=== PATIENT | male | born 1955 | race Caucasian/White ===

== ENCOUNTER 2019-07-02 21:37 | Inpatient (IN) | payer OTHER ==
[~2019-07-02] VITALS: Ht 167.6 cm; Wt 70.3 kg
[~2019-07-02 21:37] MED LIST: FLEXERIL PO; GLUCOPHAGE1000 MG PO; LANTUSSOLASTAR SUBQ; LISINOPRIL5 MG PO; NORCO 5-325 TA1 EACH PO; PROVENTIL HFA6.7 G1 INH; ULTRAM 50MG TAB50 MG PO; ZOFRAN ODT4 MG PO; ZPAK PO
[2019-07-02 21:54] VITALS: BP 139/76
[2019-07-02] MEDS ORDERED: CLINDAMYCIN PO (22:04)
[2019-07-02 22:45] LABS: ABSOLUTE NEUTROPHILS 9.6 thou/uL (1.4-8.2); BASOPHILS 0.4 % (0.0-2.0); EOSINOPHILS 0.7 % (0.0-3.0); HEMATOCRIT 30.8 % (42.0-52.0); HEMOGLOBIN 10.2 gm/dL (14.0-18.0); LYMPHOCYTES 12.4 % (24.0-44.0); MCHC 33.1 g/dL (28.0-37.0); MCV 87.6 fL (80.0-100.0); MONOCYTES 5.2 % (1.0-8.0); PLATELET COUNT 328 thou/uL (150-400); POLYS 81.3 % (36.0-66.0); RBC 3.52 mil/uL (4.50-6.00); RDW 13.4 % (10.5-14.5); WBC 11.8 thou/uL (4.0-11.0)
[2019-07-02 22:46] LABS: CALCIUM 8.4 mg/dL (8.5-10.1); CREATININE 0.9 mg/dL (0.7-1.3); POTASSIUM 3.6 mmol/L (3.5-5.1)
[2019-07-02 22:52] LABS: ALBUMIN 1.8 g/dL (3.4-5.0); TOTAL BILIRUBIN 0.3 mg/dL (<0.1-1.0); TOTAL PROTEIN 6.2 g/dL (6.4-8.2)
[2019-07-03 00:08] VITALS: BP 127/57
[2019-07-03 00:36] VITALS: BP 125/53
[2019-07-03 03:31] VITALS: BP 132/80
[2019-07-03 07:11] VITALS: BP 128/71
--- NOTE | 2019-07-03 08:40 | EKG ---
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 : 1955 Requested By: Oscar Armstrong Order Number: [id number] MD: Vidal Bangura Measurements Intervals [place] Rate: 92 P: 90 DE: 171 QRS: 11 QRSD: 96 T: 31 QT: 373 QTc: 462 Interpretive Statements Sinus rhythm Atrial premature complexes Compared to ECG 03/08/2012 08:32:10 Atrial premature complex(es) now present First degree AV block no longer present Electronically Signed On 07-03-2019 8:39:00 CDT by Vidal Bangura [email or web address] <ELECTRONICALLY SIGNED> By: Vidal Bangura MD, [facility] 07/03/19 0839 2256 2256 Vidal Bangura MD, [facility] /EPI
--- NOTE | 2019-07-03 08:53 | EKG ---
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 07/03/19 0851 Vidal Bangura MD, [facility] /EPI
[2019-07-03 12:05] VITALS: BP 155/78
[2019-07-03 19:12] VITALS: BP 124/63
[2019-07-04 02:07] LABS: GLYCOHEMOGLOBIN (HGB A1C) 14.3 % (4.8-5.6)
[2019-07-04 04:27] VITALS: BP 130/72
[2019-07-04 08:33] VITALS: BP 140/80
[2019-07-04 16:49] VITALS: BP 130/74
[2019-07-04 20:10] VITALS: BP 144/81
[2019-07-05 05:27] VITALS: BP 141/85
[2019-07-05 07:07] VITALS: BP 146/84
[2019-07-05 15:13] VITALS: BP 150/81
[2019-07-06 03:16] VITALS: BP 148/76
[2019-07-06 06:12] LABS: CALCIUM 8.6 mg/dL (8.5-10.1); CREATININE 0.6 mg/dL (0.7-1.3)
[2019-07-06 06:39] LABS: POTASSIUM 6.6 mmol/L (3.5-5.1)
[2019-07-06 07:07] VITALS: BP 151/75
[2019-07-06 14:18] VITALS: BP 151/75
[2019-07-06] MEDS ORDERED: LANTUS SUBQ (14:21)
[2019-07-06] MEDS ORDERED: NORCO 5-325 TA1 EAC1 PO (14:21)
[2019-07-06] MEDS ORDERED: KEFLEX500 M2 PO (14:21)
[2019-07-06 15:25] VITALS: BP 151/75
== END 2019-07-06 17:02 | disposition home or self-care (01) | DRG 603 ==
LOC: ER 21:37 → 4S 23:33 → EROBS 23:33 → 4S 07-03 00:17
PROVIDERS: Emergency Medicine; Internal Medicine; Nurse Practitioner Family; ADMIT Internal Medicine
DX: L03.115 Cellulitis of right lower limb (principal); E46 Unspecified protein-calorie malnutrition; I48.91 Unspecified atrial fibrillation; I48.0 Paroxysmal atrial fibrillation; R59.9 Enlarged lymph nodes, unspecified; E11.40 Type 2 diabetes mellitus with diabetic neuropathy, unspecified; B18.2 Chronic viral hepatitis C; Z88.6 Allergy status to analgesic agent; Z68.25 Body mass index [BMI] 25.0-25.9, adult; Z91.19 Patient's noncompliance with other medical treatment and regimen; Z79.899 Other long term (current) drug therapy
CPT/HCPCS: 10195

== ENCOUNTER 2019-09-12 13:51 | Emergency (ER) | payer OTHER ==
[~2019-09-12] VITALS: Ht 167.6 cm; Wt 59.0 kg
[~2019-09-12 13:51] MED LIST changes: +CLINDAMYCIN PO; +KEFLEX500 M2 PO; +LANTUS SUBQ; +NORCO 5-325 TA1 EAC1 PO
[2019-09-12 14:31] LABS: ABSOLUTE NEUTROPHILS 4.3 thou/uL (1.4-8.2); BASOPHILS 0.9 % (0.0-2.0); EOSINOPHILS 1.4 % (0.0-3.0); HEMATOCRIT 42.8 % (42.0-52.0); HEMOGLOBIN 14.9 gm/dL (14.0-18.0); LYMPHOCYTES 21.2 % (24.0-44.0); MCH 30.3 pg (26.0-34.0); MCHC 34.8 g/dL (28.0-37.0); MCV 87.3 fL (80.0-100.0); MONOCYTES 7.2 % (1.0-8.0); PLATELET COUNT 232 thou/uL (150-400); POLYS 69.3 % (36.0-66.0); RBC 4.91 mil/uL (4.50-6.00); RDW 14.5 % (10.5-14.5); WBC 6.2 thou/uL (4.0-11.0)
[2019-09-12 14:44] LABS: ANION GAP 10 mmol/L (7-16); BUN 28 mg/dL (7-18); CHLORIDE 99 mmol/L (98-107); CO2 24 mmol/L (21-32); CREATININE 1.4 mg/dL (0.7-1.3); DIRECT BILIRUBIN < 0.1 mg/dL (<0.1-0.2); POTASSIUM 4.8 mmol/L (3.5-5.1); SGOT 16 U/L (15-37); SGPT 22 U/L (30-65); SODIUM 133 mmol/L (136-145); TOTAL BILIRUBIN 0.6 mg/dL (0.2-1.0); TOTAL PROTEIN 6.9 g/dL (6.4-8.2); TROPONIN-I <0.06 ng/mL (<0.06)
[2019-09-12 14:45] LABS: GLUCOSE 536 mg/dL (74-106)
--- NOTE | 2019-09-12 17:07 | EKG ---
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1955 Requested By: Karen Munoz Order Number: [id number] MD: Vidal Bangura Measurements Intervals [place] Rate: 99 P: 71 OR: 180 QRS: 5 QRSD: 79 T: 67 QT: 349 QTc: 448 Interpretive Statements Sinus tachycardia Atrial premature complexes Anteroseptal infarct, old Compared to ECG 07/03/2019 08:08:34 Atrial premature complex(es) now present Electronically Signed On 09-12-2019 17:06:35 CDT by Vidal Bangura [email or web address] <ELECTRONICALLY SIGNED> By: Vidal Bangura MD, [facility] 09/12/19 1706 1400 1400 Vidal Bangura MD, [facility] /EPI
[2019-09-12 17:33] VITALS: BP 145/86
== END 2019-09-12 17:35 | disposition home or self-care (01) ==
LOC: ER 13:51
PROVIDERS: Emergency Medicine
DX: R06.02 Shortness of breath (principal); E11.65 Type 2 diabetes mellitus with hyperglycemia; R42 Dizziness and giddiness; R07.9 Chest pain, unspecified; R05 Cough; Z91.14 Patient's other noncompliance with medication regimen; Z79.4 Long term (current) use of insulin; Z79.2 Long term (current) use of antibiotics; Z79.899 Other long term (current) drug therapy; Z88.5 Allergy status to narcotic agent; Z87.891 Personal history of nicotine dependence

== ENCOUNTER 2020-10-02 23:26 | Inpatient (IN) | payer OTHER ==
[~2020-10-02] VITALS: Ht 165.1 cm; Wt 60.8 kg
--- NOTE | ~2020-10-02 | HC ---
[facility] [place] [address] CONSULTATION Name: LUDWIG PAN Room #: 248-P ADM IN M.R.#: [id number] Admission: 10/03/20 Attend Phys: Jabier Beal MD Discharge: Date of : 55 Report #: [id number] THIS REPORT FOR: cc: NO FAMILY PHYSICIAN or PCP NO FAMILY PHYSICIAN or PCP Ildefonso Redding MD ~ DATE OF SERVICE: 10/09/2020 HISTORY OF PRESENT ILLNESS: The patient is a 64-year-old white male with a history of non-ST elevation [place], who was treated over at [place], noted to have multivessel disease, apparently left AMA. He is admitted here to [facility] for further management. He underwent a coronary artery bypass grafting x6 on 10/04/2020. He is currently in the intensive care unit recuperating. He has ischemic cardiomyopathy with some congestion and being diuresed. We are seeing him in rehabilitation medicine consultation. PAST MEDICAL HISTORY: Includes hypertension, atrial fibrillation, diabetes mellitus type 2, ischemic cardiomyopathy, hepatitis C. He has had prior histories of leaving AM. He also has bilateral lower extremity peripheral neuropathy. HABITS: Past tobacco use. Ten pack year history. MEDICATIONS: Please see the full medication listing. 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 Daughter is noted to live in a house, work during the day. He is considering options for where to live. 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 REVIEW OF SYSTEMS: Did not offer any current complaints of chest pain, shortness of breath or abdominal discomfort. PHYSICAL EXAMINATION: GENERAL: He is a slender 64-year-old small statured white male in no obvious distress. VITAL SIGNS: Last recorded temperature 98.4, pulse 104, respirations 21, blood pressure 152/87. NEUROLOGIC: The patient is alert. HEENT: Appeared to be benign, male pattern balding. He is a good historian. He has the sternum, which is dressed. EXTREMITIES: Functional range of motion of the upper extremity is limited. Upper extremity examination, no obvious focal weakness. Lower extremities, he has decreased distal sensation with his neuropathy. No focal calf swelling. Tone appeared to be intact. Strength is probably a grade 4- to 3+/5. He has [facility] [address] [place] [address] CONSULTATION Name: LUDWIG PAN Room #: 248-P [facility] IN M.R.#: [id number] Admission: 10/03/20 Attend Phys: Jabier Beal MD Discharge: Date of : 55 Report #: [id number] been min assist; sit to stand and was ambulatory 15 feet min assist handheld. ASSESSMENT: A 64-year-old male with the following problem list: 1. Cardiac debilitation. 2. Severe coronary artery disease status post coronary artery bypass grafting x6. 3. Delirium, which is noted to have resolved. 4. History of posttraumatic stress disorder per psychiatry input. 5. Ischemic cardiomyopathy. 6. Hypertension. 7. Hyperlipidemia. 8. Atrial fibrillation. 9. Postoperative cardiogenic shock. 10. Acute renal insufficiency superimposed on chronic kidney disease. 11. Thrombocytopenia. 12. Postoperative atrial fibrillation. 13. Acute postop metabolic encephalopathy, noted to have resolved. 14. Medical noncompliance. PLAN: Therapies are working with him on improving strength, endurance, independence. We are considering him for an acute [address] [place] [address] inpatient rehabilitation stay and at this point, he will be placed on the [address] [place] [address] rehabilitation list as beds are tight and we will continue to follow along with you. I encouraged him to continue working in therapies to maximize his strength and functional independence. He desires a male therapist if possible and I did put a request in this regard with physical therapy. Thank you for asking us to assist in this patient's care. By: [phone] Ildefonso Redding MD /nt
[2020-10-02 23:29] VITALS: BP 143/86
[2020-10-02 23:46] LABS: ABSOLUTE NEUTROPHILS 9.5 thou/uL (1.4-8.2); BASOPHILS 0.8 % (0.0-2.0); EOSINOPHILS 0.7 % (0.0-3.0); HEMATOCRIT 29.5 % (42.0-52.0); HEMOGLOBIN 9.9 gm/dL (14.0-18.0); LYMPHOCYTES 8.2 % (24.0-44.0); MCH 30.4 pg (26.0-34.0); MCHC 33.6 g/dL (28.0-37.0); MCV 90.3 fL (80.0-100.0); MONOCYTES 6.5 % (1.0-8.0); PLATELET COUNT 200 thou/uL (150-400); POLYS 83.8 % (36.0-66.0); RBC 3.27 mil/uL (4.50-6.00); RDW 13.7 % (10.5-14.5); WBC 11.4 thou/uL (4.0-11.0)
[2020-10-02 23:56] LABS: CALCIUM 8.1 mg/dL (8.5-10.1); CREATININE 1.3 mg/dL (0.7-1.3); POTASSIUM 3.8 mmol/L (3.5-5.1)
[2020-10-03 00:05] LABS: ALBUMIN 2.5 g/dL (3.4-5.0); TOTAL BILIRUBIN 0.3 mg/dL (0.2-1.0); TOTAL PROTEIN 5.6 g/dL (6.4-8.2)
[2020-10-03 00:07] LABS: TROPONIN-I 1.59 ng/mL (<0.06)
[2020-10-03 00:31] LABS: APTT 25.5 Seconds (24.5-32.8); INR 0.98; PROTIME 10.7 Seconds (10.5-12.1)
[2020-10-03 05:40] LABS: CHOLESTEROL 177 mg/dL (<200); HDL CHOLESTEROL 53 mg/dL (>40); LDL CHOLESTEROL 102 mg/dL (<100); TC:HDL 3.3 Ratio (Not establshd); TRIGLYCERIDE 110 mg/dL (<150); VLDL 22 mg/dL (<40)
[2020-10-03 05:50] LABS: SERUM ASSESSMENT Clear
--- NOTE | 2020-10-03 07:12 | NUR ---
TOOK OVER CARE AT THIS TIME
--- NOTE | 2020-10-03 07:52 | NUR ---
CARDIOLOGY AT BEDSIDE
--- NOTE | 2020-10-03 09:43 | EKG ---
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1955 Requested By: Clifford Shi Order Number: [id number] MD: Vidal Bangura Measurements Intervals [place] Rate: 94 P: 54 [place]: 195 QRS: -8 QRSD: 92 T: 93 QT: 305 QTc: 382 Interpretive Statements Sinus rhythm Anteroseptal infarct, possibly recent ST and T wave abnormality Compared to ECG 09/12/2019 14:00:15 ST (T wave) deviation now present Sinus tachycardia no longer present Atrial premature complex(es) no longer present Electronically Signed On 10-03-2020 9:43:19 CDT by Vidal Bangura [email or web address] <ELECTRONICALLY SIGNED> By: Vidal Bangura MD, [facility] 10/03/20 0943 2330 2330 Vidal Bangura MD, [facility] /EPI
--- NOTE | 2020-10-03 11:55 | NUR ---
PT MOVED TO ED ROOM 16 AT THIS TIME. REPORT GIVEN TO FLORENCIA SOTO. PT VSS ON 2L NC. STABLE AT BASELINE
[2020-10-03 12:24] VITALS: BP 123/78
--- NOTE | 2020-10-03 12:25 | NUR ---
HANDOFF TOOL SENT AT THIS TIME
--- NOTE | 2020-10-03 12:40 | NUR ---
REPORT GIVEN TO FLORENCIA HERNANDEZ AT THIS TIME
--- NOTE | 2020-10-03 12:47 | 2DMMODE ---
[facility] [place] [address] 2 D/M-MODE ECHOCARDIOGRAM Name: LUDWIG PAN Room #: 170-8 ADM IN M.R.#: [id number] Admission: 10/03/20 Attend Phys: Jabier Beal MD Discharge: Date of : 55 Report #: [id number] THIS REPORT FOR: cc: NO FAMILY PHYSICIAN or PCP NO FAMILY PHYSICIAN or PCP Vidal Bangura MD [facility] ~ APPROVED REPORT Study performed: 10/03/2020 11:00:25 EXAM: Comprehensive 2D, Doppler, and color-flow Echocardiogram Patient Location: In-Patient Room #: ER-8 Status: routine BSA: 1.64 HR: 78 bpm BP: 126/77 mmHg Rhythm: NSR Other Information Study Quality: Adequate Indications Diabetes Atrial Fibrillation Cardiomyopathy Chest Pain 2D Dimensions IVSd: 13.08 (7-11mm) LVOT Diam: 22.77 (18-24mm) LVDd: 35.15 mm PWd: 12.76 (7-11mm) Ascending Ao: 31.10 (22-36mm) LVDs: 28.20 (25-40mm) Left Atrium: 44.72 (27-40mm) Aortic Root: 27.74 mm LV Single Plane 4CH: 36.42 % LV Single Plane 2CH: 33.46 % Volumes Left Atrial Volume (Systole) Single Plane 4CH: 74.39 mL Aortic Valve AoV Peak Mohamud.: 1.36 m/s [facility] [address] [place] [address] 2 D/M-MODE ECHOCARDIOGRAM Name: LUDWIG PAN Room #: 170-8 ADM IN M.R.#: [id number] Admission: 10/03/20 Attend Phys: Tonny Palmer Discharge: Date of : 55 Report #: [id number] AO Peak Gr.: 7.58 mmHg LVOT Max P.57 mmHg LVOT Max V: 0.63 m/s TEZ Vmax: 1.87 cm2 Mitral Valve E/A Ratio: 1.4 MV Decel. Time: 841.68 ms MV E Max Mohamud.: 0.67 m/s MV A Mohamud.: 0.48 m/s MV PHT: 244.09 ms MVA (PHT): 4.44 cm2 Pulmonary Valve PV Peak Mohamud.: 0.83 m/s PV Peak Gr.: 2.78 mmHg Tricuspid Valve TR Peak Mohamud.: 2.64 m/s RAP Estimate: 10.00 mmHg TR Peak Gr.: 27.87 mmHg RVSP: 37.00 mmHg Left Ventricle The left ventricle is normal size. Mild concentric left ventricular hypertrophy. Left ventricular systolic function is moderately decreased. LVEF is 35-40%. Anterior and septal hypokinesis Right Ventricle The right ventricle is normal size. The right ventricular systolic function is normal. Atria Left atrium is mildly dilated. The right atrium size is normal. Aortic Valve The aortic valve is moderately calcified No aortic regurgitation is present. There is no aortic valvular stenosis. Mitral Valve Moderate mitral annular calcification. Mild leaflet calcification Mild to moderate mitral regurgitation. No evidence of mitral valve stenosis. Tricuspid Valve The tricuspid valve is normal in structure. Mild tricuspid regurgitation. Pulmonary artery pressure 35 mmHg. Pulmonic Valve [facility] [address] [place] [address] 2 D/M-MODE ECHOCARDIOGRAM Name: [facility] Room #: 170-8 ADM IN [facility].#: [id number] Admission: 10/03/20 Attend Phys: Tonny Palmer Discharge: Date of : 55 Report #: [id number] The pulmonary valve is normal in structure. There is no pulmonic valvular regurgitation. Great Vessels The aortic root is normal in size. IVC is dilated and collapses >50% with inspiration. Pericardium There is no pericardial effusion. There is no pleural effusion. <Conclusion> Left ventricular systolic function is moderately decreased. LVEF is 35-40%. Anterior and septal hypokinesis Left atrium is mildly dilated. The aortic valve is moderately calcified. No aortic regurgitation or stenosis Moderate mitral annular calcification. Mild leaflet calcification. Mild to moderate mitral regurgitation. Mild tricuspid regurgitation. Pulmonary artery pressure of 35 mmHg. There is no pericardial effusion. <ELECTRONICALLY SIGNED> By: Vidal Bangura MD, [facility] 10/03/20 1247 1247 124 Vidal Bangura MD, [facility] /INF
[2020-10-03 14:08] VITALS: BP 141/80
--- NOTE | 2020-10-03 15:31 | NUR ---
PT TRANSFER TO CCU AT APPROX 1300. PT AFEBRILE, ADEQUATE UOP, NO BM, APPROPRIATE APPETITE. HEPARIN GTT INFUSING PER [facility] PROTOCAL. NEXT REDRAW IS 1800 TONIGHT. PT TO BE NPO AFTER MIDNIGHT FOR CABG TOMORROW. PT HAS BEEN THOUROUGHLY UPDATED AND EDUCATED ON PT CONDITION AND POC. PT SLOWLY PROGRESSING TOWARDS POC.
[2020-10-03 19:09] VITALS: BP 130/82
[2020-10-04] VITALS (13 sets, daily range): BP systolic 83–130; BP diastolic 55–82
[2020-10-04 00:06] LABS: HAV IgM AB (ANTI-HAV IgM) Negative (Negative); HEPATITIS B SURFACE AG Negative (Negative); HEPATITIS C VIRUS AB >11.0 (0.0-0.9)
--- NOTE | 2020-10-04 04:49 | NUR ---
ASSUMED CARE OF PT AT 1900 PT IS A/O X4, PT REMAINS ON HEPARIN DRIP WITH PROTOCOLS IN PLACE. PT EDUCATED ON PRE-OPEN HEART PROTOCOLS, PT REFUSES TO SHOWER WITH CHLORAHEXADINE SOAP, STATING THAT I ALREADY TOOK A SHOWER THIS AFTERNOON. PT INFORMED ONCE AGAIN OF THE PROTOCOLS REQUIRED PRIOR TO SURGERY, AND PT STATES UNDERSTANDING AND DENIES REQUEST X2. 0400 PT C/O STOMACH PAIN AND REQUEST MEDICATION. PT INFORMED THAT MEDICATION WAS GIVEN, PT STATES UNDERSTANDING STATING THAT I'LL TELL THE DOCTOR IN THE MORNING. PT REFUSES, BILATERAL ARM BP, URINE SAMPLE AND SHOWER. THIS NURSE TALKED TO THE PATIENT ABOUT CONCERNS/REFUSSALS PT AGREED TO BILATERAL BPS, AND CONTINUES TO REFUSE CHLORAHEXADINE SHOWER, STATING I DON'T WANT TO CATCH PNEUMONIA OR A COLD. PT ALSO REFUSED URINE SAMPLE STATING, I JUST PEED IN THE URINAL, GO GET IT. PT INFOMED THAT SAMPLE CANNOT BE COLLECTED FROM THE URINAL. WILL CONTINUE TO WORK TOWARDS PT POC.
[2020-10-04 06:36] LABS: URINE BILIRUBIN NEGATIVE (Negative); URINE BLOOD 1+ (Negative); URINE CLARITY CLEAR; URINE COLOR YELLOW; URINE GLUCOSE-RANDOM* 3+ (Negative); URINE KETONES TRACE (Negative); URINE LEUKOCYTES-REFLEX NEGATIVE (Negative); URINE NITRITE-REFLEX NEGATIVE (Negative); URINE PROTEIN (DIPSTICK) 3+ (Negative); URINE SPECIFIC GRAVITY 1.025 (1.005-1.035); URINE UROBILINOGEN 0.2 E.U./dl (0.2-1.0)
[2020-10-04 08:11] LABS: BACTERIA-REFLEX 1-9 Few /HPF (None Seen); CASTS None Seen /LPF (None Seen); CRYSTALS None Seen /LPF (None Seen); SQUAMOUS None Seen /LPF (0-3); URINE RBC 1-2 Rare /HPF (NONE SEEN); URINE WBC-REFLEX None Seen /HPF (0-5)
[2020-10-04 13:14] LABS: RDW 13.9 % (10.5-14.5)
[2020-10-04 13:15] LABS: MCH 30.6 pg (26.0-34.0); MCHC 33.7 g/dL (28.0-37.0); MCV 90.7 fL (80.0-100.0); RBC 2.1 mil/uL (4.50-6.00); WBC 6.2 thou/uL (4.0-11.0)
[2020-10-04 13:18] LABS: HEMOGLOBIN 6.4 gm/dL (14.0-18.0)
[2020-10-04 13:46] LABS: INR 1.35; PROTIME 14.5 Seconds (10.5-12.1)
[2020-10-04 13:51] LABS: APTT 25.6 Seconds (24.5-32.8)
[2020-10-04 13:55] LABS: POC BE 2 mmol/L (-2.0 to +3.0); POC CA IONIZED 4.1 mg/dL (4.5-5.3); POC GLUCOSE 188 mg/dL (70-99); POC HCO3 28.1 mmol/L (22.0-26.0); POC HEMOGLOBIN 7.5 g/dL (14.0-18.0); POC POTASSIUM 3.8 mmol/L (3.5-5.1); POC SODIUM 137 mmol/L (136-145); POC pCO2 51.9 mmHg (35.0-45.0); POC pH 7.341 (7.360-7.450)
[2020-10-04 13:55] LABS: POC BE 2 mmol/L (-2.0 to +3.0); POC CA IONIZED 4.3 mg/dL (4.5-5.3); POC GLUCOSE 182 mg/dL (70-99); POC HCO3 26.3 mmol/L (22.0-26.0); POC HEMOGLOBIN 7.5 g/dL (14.0-18.0); POC POTASSIUM 3.6 mmol/L (3.5-5.1); POC SODIUM 138 mmol/L (136-145); POC pCO2 39.3 mmHg (35.0-45.0); POC pH 7.433 (7.360-7.450)
[2020-10-04 13:55] LABS: POC BE 1 mmol/L (-2.0 to +3.0); POC CA IONIZED 4.7 mg/dL (4.5-5.3); POC GLUCOSE 235 mg/dL (70-99); POC HCO3 26.7 mmol/L (22.0-26.0); POC HEMOGLOBIN 9.2 g/dL (14.0-18.0); POC POTASSIUM 3.8 mmol/L (3.5-5.1); POC SODIUM 137 mmol/L (136-145); POC pCO2 47.4 mmHg (35.0-45.0); POC pH 7.359 (7.360-7.450)
[2020-10-04 13:55] LABS: POC BE 1 mmol/L (-2.0 to +3.0); POC CA IONIZED 4.9 mg/dL (4.5-5.3); POC GLUCOSE 155 mg/dL (70-99); POC HCO3 25.6 mmol/L (22.0-26.0); POC HEMOGLOBIN 6.8 g/dL (14.0-18.0); POC POTASSIUM 3.8 mmol/L (3.5-5.1); POC SODIUM 139 mmol/L (136-145); POC pCO2 41.9 mmHg (35.0-45.0); POC pH 7.395 (7.360-7.450)
[2020-10-04 13:55] LABS: POC BE 3 mmol/L (-2.0 to +3.0); POC CA IONIZED 4.3 mg/dL (4.5-5.3); POC GLUCOSE 168 mg/dL (70-99); POC HCO3 27.2 mmol/L (22.0-26.0); POC HEMOGLOBIN 6.8 g/dL (14.0-18.0); POC POTASSIUM 4.3 mmol/L (3.5-5.1); POC SODIUM 138 mmol/L (136-145); POC pCO2 37.5 mmHg (35.0-45.0); POC pH 7.468 (7.360-7.450)
[2020-10-04 13:55] LABS: POC BE 3 mmol/L (-2.0 to +3.0); POC CA IONIZED 4.5 mg/dL (4.5-5.3); POC GLUCOSE 161 mg/dL (70-99); POC HCO3 27.9 mmol/L (22.0-26.0); POC HEMOGLOBIN 6.8 g/dL (14.0-18.0); POC POTASSIUM 3.9 mmol/L (3.5-5.1); POC SODIUM 137 mmol/L (136-145); POC pCO2 47.5 mmHg (35.0-45.0); POC pH 7.377 (7.360-7.450)
[2020-10-04 13:55] LABS: POC BE 4 mmol/L (-2.0 to +3.0); POC CA IONIZED 4.7 mg/dL (4.5-5.3); POC GLUCOSE 303 mg/dL (70-99); POC HCO3 27.2 mmol/L (22.0-26.0); POC HEMOGLOBIN 9.9 g/dL (14.0-18.0); POC POTASSIUM 4.4 mmol/L (3.5-5.1); POC SODIUM 136 mmol/L (136-145); POC pCO2 37.2 mmHg (35.0-45.0); POC pH 7.473 (7.360-7.450)
[2020-10-04 13:56] LABS: POC BE -1 mmol/L (-2.0 to +3.0); POC CA IONIZED 5.2 mg/dL (4.5-5.3); POC GLUCOSE 151 mg/dL (70-99); POC HCO3 24.1 mmol/L (22.0-26.0); POC HEMOGLOBIN 8.5 g/dL (14.0-18.0); POC POTASSIUM 3.7 mmol/L (3.5-5.1); POC SODIUM 140 mmol/L (136-145); POC pH 7.367 (7.360-7.450)
[2020-10-04 14:46] LABS: HCO3 19.9 mmol/L (22.0-26.0); sO2 95.6 % (92.0-98.0)
--- NOTE | 2020-10-04 15:00 | NUR ---
pt recieved from surgery sedated and intubated, accby by anes and or nursing personnel. Report recieved and pt placed on the vent by RT. Dr Ramirez and Robert here to see. Pt presently on Precedex for sedation. momitor shows Junctional rhythm. Pt on Dobutamine and Insulin. Hemodynamic's fluctuating Cardene on and off. Heat source on Pt temp 36.5. all MCT and PCT intact draining a small amount of drainage.Simms patent urine yellow. Assessment completed. Abgs and Labs done. Blood sugar 110. will cont to work toward POC.
[2020-10-04 15:07] LABS: HEMATOCRIT 24.6 % (42.0-52.0); MCH 30.9 pg (26.0-34.0); MCHC 34.4 g/dL (28.0-37.0); MCV 89.9 fL (80.0-100.0); RBC 2.74 mil/uL (4.50-6.00); RDW 13.4 % (10.5-14.5); WBC 8.1 thou/uL (4.0-11.0)
[2020-10-04 15:11] LABS: HEMOGLOBIN 8.5 gm/dL (14.0-18.0)
[2020-10-04 15:21] LABS: CALCIUM 8.6 mg/dL (8.5-10.1); CREATININE 1.7 mg/dL (0.7-1.3); MAGNESIUM 2.6 mg/dL (1.8-2.4)
[2020-10-04 15:30] LABS: APTT 25.3 Seconds (24.5-32.8); INR 1.05; PROTIME 11.4 Seconds (10.5-12.1)
[2020-10-04 15:34] LABS: BE(vivo) -4.9 mmol/L (-2 to +3); PCO2 36.5 mmHg (35.0-45.0); PO2 71.2 mmHg (80.0-100.0); pH 7.357 (7.360-7.450); sO2 93.8 % (92.0-98.0)
--- NOTE | 2020-10-04 16:00 | NUR ---
Ekg and ABG's done Dr Ramirez here.
--- NOTE | 2020-10-04 16:00 | NUR ---
No changes to assessment pt remains sedated and hemodynamic's fluctuating medications adjusted as needed.
--- NOTE | 2020-10-04 18:00 | NUR ---
Pt stabizing and drips adjusted as needed. dr Ramirez here to make his rounds . 1899 Report to oncoming RN.
[2020-10-04 22:59] LABS: BE(vivo) -5.2 mmol/L (-2 to +3); HCO3 19.1 mmol/L (22.0-26.0); PCO2 33.1 mmHg (35.0-45.0); PO2 87.5 mmHg (80.0-100.0); sO2 96.6 % (92.0-98.0)
--- NOTE | 2020-10-04 23:18 | NUR ---
CPAP TRIAL STARTED AT 2220 WITH FiO2 50%, PSV 8 PEEP 5; PT TOLERATED VERY WELL, RESP. RATE IN LOW 20'S, SAT 94-96%, Tv 500-564. ABG'S AFTER 30 MIN WITHIN PARAMETERS. PT EXTUBATED AT 2312 AND PLACED ON 12 L HFC.
[2020-10-05] VITALS (24 sets, daily range): BP systolic 76–131; BP diastolic 45–75
[2020-10-05 00:19] LABS: BE(vivo) -4.8 mmol/L (-2 to +3); HCO3 19.6 mmol/L (22.0-26.0); PCO2 34.2 mmHg (35.0-45.0); PO2 111.2 mmHg (80.0-100.0); pH 7.377 (7.360-7.450)
[2020-10-05 01:06] LABS: GLYCOHEMOGLOBIN (HGB A1C) 13.5 % (4.8-5.6)
[2020-10-05 01:06] LABS: GLYCOHEMOGLOBIN (HGB A1C) 13.7 % (4.8-5.6)
[2020-10-05 04:48] LABS: CALCIUM 8.2 mg/dL (8.5-10.1); CREATININE 1.9 mg/dL (0.7-1.3); MAGNESIUM 2.8 mg/dL (1.8-2.4); POTASSIUM 4.7 mmol/L (3.5-5.1)
--- NOTE | 2020-10-05 07:03 | NUR ---
Pt progressing toward goals. Able to titrate off Cardene gtt by 0100, Precedex titrated off by 0500. Oxygen titrated down from 12 L HFC post extubation to 2 L canula this morning. Urine output for shift approximately 350 cc. Hemodynamics stable and within parameters. Pain well controlled with Fentanyl IVP q 3-4 hours prn.
--- NOTE | 2020-10-05 07:39 | NUR ---
Assummed care of this patient from the night nurse. Cholo DON at 0700
--- NOTE | 2020-10-05 10:46 | EKG ---
[place] [address] [facility] 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 : 1955 Requested By: Butch Vega Order Number: [id number] MD: Vidal Bangura Measurements Intervals [place] Rate: 93 P: 16 [place]: 251 QRS: -16 QRSD: 115 T: 79 QT: 352 QTc: 438 Interpretive Statements Sinus rhythm Prolonged CA interval T wave abnormality, consider anterior ischemia Inferior infarct, old Baseline wander in lead(s) III,aVL,aVF,V1,V2,V3,V4,V5,V6 Compared to ECG 10/02/2020 23:30:04 Septal Q waves are no longer present Electronically Signed On 10-05-2020 10:46:13 CDT by Vidal Bangura [email or web address] <ELECTRONICALLY SIGNED> By: Vidal Bangura MD, [facility] 10/05/20 1046 1600 1600 Vidal Bangura MD, [facility] /EPI
--- NOTE | 2020-10-05 10:53 | EKG ---
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1955 Requested By: Butch Vega Order Number: [id number] MD: Vidal Bangura Measurements Intervals [place] Rate: 78 P: 63 [place]: 198 QRS: -21 QRSD: 74 T: 119 QT: 347 QTc: 396 Interpretive Statements Sinus rhythm Abnormal R-wave progression, early transition Inferior infarct, old Borderline ST elevation, anterolateral leads Compared to ECG 10/04/2020 16:00:31 ST (T wave) deviation now present Electronically Signed On 10-05-2020 10:53:26 CDT by Vidal Bangura [email or web address] <ELECTRONICALLY SIGNED> By: Vidal Bangura MD, [facility] 10/05/20 1053 0756 0756 Vidal Bangura MD, [facility] /EPI
[2020-10-05 10:59] LABS: HEMATOCRIT 27.6 % (42.0-52.0); HEMOGLOBIN 9.4 gm/dL (14.0-18.0); MCH 30.9 pg (26.0-34.0); MCHC 33.9 g/dL (28.0-37.0); MCV 90.9 fL (80.0-100.0); RBC 3.03 mil/uL (4.50-6.00); RDW 14.3 % (10.5-14.5); WBC 9.5 thou/uL (4.0-11.0)
--- NOTE | 2020-10-05 11:30 | NUR ---
1040 PATIENT'S MONITOR SHOWING A FIB WITH VENT RESPONSE [address] SOTELO IN THE UNIT AND INFORMED. ORDERS NOTED. INSULIN DRIP OFF FOR BLOOD GLUCOSE OF 80. RT VENANCIO WALKER IS VERY POSITIONAL. PATIENT TAKING O2 OFF. CARDIZEM BOLUS GIVEN AND DRIP STARTED PER ORDER. URINE OUTPUT LOW, DR SOTELO AWARE, IVF RATE INCREASED.
--- NOTE | 2020-10-05 13:46 | NUR ---
PATIENT REMAINS IN AFIB. DENISE IS VERY POSITIONAL AND WILL ONLY READ WHEN ARM IS FLAT ON THE BED. PATIENT HOLDING ICE BAG TO CHEST HE STATES THAT IT MAKES IT FEEL BETTER. CARDIAC INDEX HAS IMPROVED AND NOW READING 1.6 TO 2.3.
--- NOTE | 2020-10-05 15:00 | NUR ---
PATIENT ASSISTED UP TO THE CHAIR AND IS INSISTENT THAT HIS SWAIN CATH IS NOT DRAINING PROPERLY HE HAS A CONSTANT URGE TO URINATE. BLADDER SCAN DONE WITH 147ML NOTED IN THE BLADDER. SWAIN CATH DC'S AT PATIENT'S REQUEST AND HE ATTEMPTED TO VOID, NO RESULTS.
--- NOTE | 2020-10-05 16:30 | NUR ---
PATIENT RETURNED TO BED AFTER BEING UP FOR 1 HOUR. CHEST TUBES DRAINED SEROUS SANG DRAINAGE. C/O NAUSEA. ZOFRAN GIVEN.
--- NOTE | 2020-10-05 18:00 | NUR ---
PATIENT ATTEMPTING TO CLIMB OUT OF BED, PULLING CHEST TUBES APART. DR SOTELO IN THE UNIT, CHEST TUBES, SWAN AND DENISE PULLED PER ORDER. PACER WIRES CAPPED. PRECEDEX RESTARTED. PCXR DONE PER ORDER.
--- NOTE | 2020-10-05 18:45 | NUR ---
PATIENT IS SLOWLY PROGRESSING TOWARDS OUTCOME GOALS, HEART RATE DROPPING INTO THE UPPER 40'S. PRECEDEX AND CARDIZEM TURNED OFF. BP DROPPED WITH MAP AT 60 MMHG. WILL CONTINUE TO MONITOR
--- NOTE | 2020-10-05 20:17 | NUR ---
Assumed pt care at 191. BP 77/53 per left arm cuff; Dr. Ramirez called. Doctor requested BP taken in both arms for comparison as pt had already received fluid boluses during day shift. Right arm BP 117/70. Will continue to measure BP by right arm. Pt alert, confused but cooperative at this time. Monitor currently shows sinus rhythm. Pt converted from a-fib to sinus rhythm at approximately 1900.
--- NOTE | 2020-10-05 20:32 | NUR ---
Dr. Ramirez here to see pt. VS stable, SBP remains >110, MAP > 60, monitor SR. No new orders at this time.
[2020-10-06] VITALS (23 sets, daily range): BP systolic 90–131; BP diastolic 50–90
--- NOTE | 2020-10-06 00:32 | NUR ---
Mediastinal site dressings saturated with sero-sanguinous drainage. Drsgs and gown changed.
[2020-10-06 04:40] LABS: HEMATOCRIT 26.4 % (42.0-52.0); MCH 30.9 pg (26.0-34.0); MCHC 34.1 g/dL (28.0-37.0); MCV 90.5 fL (80.0-100.0); RBC 2.92 mil/uL (4.50-6.00); RDW 13.8 % (10.5-14.5); WBC 8.4 thou/uL (4.0-11.0)
[2020-10-06 04:56] LABS: ALBUMIN 2.3 g/dL (3.4-5.0); CALCIUM 7.7 mg/dL (8.5-10.1); POTASSIUM 4.7 mmol/L (3.5-5.1); TOTAL BILIRUBIN 0.3 mg/dL (0.2-1.0); TOTAL PROTEIN 5.2 g/dL (6.4-8.2)
--- NOTE | 2020-10-06 07:31 | NUR ---
ASSUMMED CARE OF THIS PATIENT FROM THE NIGHT NURSE, KOBE DON AT 0700. PATIENT IS SLEEPING IN THE CHAIR.
--- NOTE | 2020-10-06 08:23 | HC ---
[facility] [place] [address] CONSULTATION Name: LUDWIG PAN Room #: 248-P ADM IN M.R.#: [id number] Admission: 10/03/20 Attend Phys: Jabier Beal MD Discharge: Date of : 55 Report #: [id number] THIS REPORT FOR: cc: NO FAMILY PHYSICIAN or PCP NO FAMILY PHYSICIAN or PCP Mateus Ramirez MD ~ DATE OF SERVICE: 10/03/2020 REASON FOR CONSULTATION: We were asked to see the patient for coronary artery disease. HISTORY OF PRESENT ILLNESS: The patient is a 64-year-old who was admitted to [facility] on 09/27/2020 with uncontrolled diabetes mellitus, cough and shortness of breath. The patient was ultimately transferred to [facility] and had coronary artery catheterization on 09/30/[address] Vasquez. This shows severe 3-vessel coronary disease and a left dominant system. Left ventricular function reduced with an ejection fraction of 40%. Chart notes atrial fibrillation. The patient was told that he needed coronary artery bypass surgery, but he did not like the way he was treated at [place] and signed out against medical advice early this morning and came directly to our Emergency Department. On admission here, the patient was found to have a slightly elevated troponin and elevated NT-proBNP. The patient is COVID negative. Chest x-ray shows some ill-defined densities. We also note that reasonably full preoperative workup was done at [facility] including carotid studies, vein mapping. PAST MEDICAL HISTORY: Significant for diabetes mellitus and hypertension. Chart notes atrial fibrillation. MEDICATIONS: The patient takes insulin at home along with Januvia and lisinopril. ALLERGIES: None known. SOCIAL HISTORY: The patient claims he does not have a permanent residence. Currently, he is living with daughter and son-in-law transiently. Alcohol, denies chronic alcohol use. Tobacco, claims he quit smoking 20 years ago and denies substance abuse. REVIEW OF SYSTEMS: GENERAL: The patient denies fever, chills, weight change. EYES: Denies vision change. [facility] [address] [place] [address] CONSULTATION [facility]: [facility] Room #: 248-P [facility] IN M.R.#: [id number] Admission: 10/03/20 Attend Phys: Jabier Beal MD Discharge: Date of : 55 Report #: [id number] HENT: Denies headache, nasal discharge, hearing problems. CARDIAC: The patient has epigastric pain at rest. Denies palpitations. RESPIRATORY: Has had some cough and shortness of breath recently. No sputum production, no hemoptysis. GASTROINTESTINAL: Epigastric discomfort. There is a history of hepatitis C positivity, but the patient states he took drugs for the prescribed 3 months, but did not get retested. No nausea, vomiting, diarrhea or blood. GENITOURINARY: No urgency, frequency, blood. MUSCULOSKELETAL: No bone or joint pain. NEUROLOGIC: No motor or sensory dysfunction. ENDOCRINE: No goiter, no tremor. VASCULAR: Denies claudication, rest pain. PSYCHIATRIC: No hallucinations. Does admit to anxiety. PHYSICAL EXAMINATION: GENERAL: The patient is lying in bed, trying to sleep, no distress. VITAL SIGNS: Temperature 37.1, heart rate 73, respiratory rate 17, blood pressure 123/78, O2 sat 94% on room air. HEENT: No scleral icterus. No arcus. Oral, missing 2 front teeth upper incisors. NECK: No mass. I hear no bruit. CHEST: Clear to auscultation. The patient has occasional cough, but I do not hear rales or rhonchi. CARDIAC: Regular rhythm, no murmur. ABDOMEN: Soft, no mass. EXTREMITIES: No clubbing, cyanosis or edema. VASCULAR: 2+ dorsalis pedis pulses bilaterally. No obvious saphenous vein problems. SKIN: No rash or infection. NEUROLOGIC: No motor or sensory dysfunction. MUSCULOSKELETAL: No bone or joint asymmetry or deformity. PSYCHIATRIC: Shows insight into problem. Does appear to have some mild anxiety and emotional lability. ASSESSMENT AND PLAN: Cardiac catheterization demonstrates severe 3-vessel coronary disease with reduced ventricular function in the setting of diabetes mellitus. We have recommended coronary artery bypass surgery. Risks and details of this were discussed with the patient. Options and alternatives were reviewed. Risks include, but are not limited to, bleeding, infection, anesthesia risks, heart and lung problems, stroke, and . The patient understands all of this and he wishes to proceed. The patient is currently on IV heparin. We will obtain the rest of our preoperative studies and try to proceed with surgery tomorrow morning if we can. [address] [address] CONSULTATION Name: LUDWIG PAN Room #: 248-P ADM IN M.R.#: [id number] Admission: 10/03/20 Attend Phys: Jabier Beal MD Discharge: Date of : 55 Report #: [id number] Thank you for the consult. <ELECTRONICALLY SIGNED> By: Maetus Ramirez MD 10/06/20 08 1234 2108 Mateus Ramirez MD /nt
--- NOTE | 2020-10-06 08:24 | O ---
[facility] [place] [address] OPERATIVE REPORT Name: LUDWIG PAN Room #: 248-P ADM IN M.R.#: [id number] Admission: 10/03/20 Attend Phys: Jabier Beal MD Discharge: Date of : 55 Report #: [id number] THIS REPORT FOR: cc: NO FAMILY PHYSICIAN or PCP NO FAMILY PHYSICIAN or PCP Mateus Ramirez MD ~ DATE OF SERVICE: 10/04/2020 PREOPERATIVE DIAGNOSES: Coronary artery disease, atrial fibrillation. POSTOPERATIVE DIAGNOSES: Coronary artery disease, atrial fibrillation. OPERATIONS: Coronary artery bypass x6 including left internal mammary artery to left anterior descending artery, saphenous vein to diagonal, marginal 1, and marginal 2, and marginal 3 and saphenous vein to posterior descending artery (branch of left dominant circumflex) and endoscopic harvest of left greater saphenous vein and clipping of left atrial appendage. ANESTHESIA: General. INDICATIONS: The patient is a 64-year-old with 3-vessel coronary disease. The patient signed himself out of [facility] and came to our facility for treatment. The patient is having rest angina. Catheterization demonstrates severe 3-vessel coronary disease with reduced ventricular function. The patient also seems to have atrial fibrillation on of some of the prior EKGs (and some sinus). FINDINGS AND TECHNIQUE: After general anesthesia was established, saphenous vein was harvested using an endoscopic approach and prepared for use as a conduit. Exposure was obtained through median sternotomy. Left internal mammary artery was harvested from chest wall. Pericardial well was made. Cannulation sutures were placed. Heparin was given. Aorta was cannulated. Right atrium was cannulated. Cardioplegia needle was positioned in the aortic root. Retrograde cardioplegic catheter was placed in the coronary sinus. Cardiopulmonary bypass was established. Aorta was cross clamped. Antegrade and retrograde cardioplegia were given. Ice was poured into the pericardial well. The heart was stopped. During electromechanical arrest, the distal anastomoses were performed. An end-to-side anastomosis was made between vein and the posterior descending artery. This was a distal branch of the left dominant circumflex. Cold cardioplegia was given. A separate segment of vein was sewn end-to-side to the third obtuse marginal artery. This was the largest of the three marginals. Cold cardioplegia was given. The same segment of vein was sewn in end-to-side fashion to the second marginal. Cold cardioplegia was given. The same segment of vein was sewn in end-to-side fashion to the first marginal. [facility] [address] [place] [address] OPERATIVE REPORT Name: LUDWIG PAN Room #: 248-P [facility] IN M.R.#: [id number] Admission: 10/03/20 Attend Phys: Jabier Beal MD Discharge: Date of : 55 Report #: [id number] cardioplegia was given. Same segment of vein was sewn in end-to-side fashion to a diagonal artery. Cold cardioplegia was given. Left internal mammary artery was sewn in end-to-side fashion to the left anterior descending artery. Patency of this vessel was checked with the temperature technique. Cold cardioplegia was given. Two Proximal anastomoses were performed. These were complete, warm retrograde cardioplegia was given followed by warm continuous blood to the coronary sinus. When this infusion was complete, the crossclamp was removed. De-airing maneuvers were performed. The anastomoses were inspected and found to be satisfactory. As the patient warmed, nice cardiac activity resumed, chest tubes and pacing wires were placed. A marker was placed around the proximal anastomoses. When the patient was warm, he was weaned from cardiopulmonary bypass. Venous cannula was removed. Protamine was given, the aortic cannula was removed. Flows were measured in the bypass grafts. Hemostasis was satisfactory, chest was irrigated with antibiotic solution and closed in the usual fashion. The patient was taken to the Intensive Care Unit in good condition having tolerated the procedure well. All counts were reported as correct. <ELECTRONICALLY SIGNED> By: Mateus Ramirez MD 10/06/20 0824 0935 1017 Mateus Ramirez MD /nt
--- NOTE | 2020-10-06 09:05 | O ---
[facility] [place] [address] OPERATIVE REPORT Name: LUDWIG PAN Room #: 248-P ADM IN M.R.#: [id number] Admission: 10/03/20 Attend Phys: Jabier Beal MD Discharge: Date of : 55 Report #: [id number] THIS REPORT FOR: cc: NO FAMILY PHYSICIAN or PCP NO FAMILY PHYSICIAN or PCP Mateus Ramirez MD ~ DATE OF SERVICE: 10/04/2020 ADDENDUM PREOPERATIVE DIAGNOSES: Coronary artery disease and atrial fibrillation. POSTOPERATIVE DIAGNOSES: Coronary artery disease and atrial fibrillation. SURGEON: Dr. Mateus Ramirez. PARTS PERSON: NEHAL Richard. ANESTHESIA: General. OPERATION: Coronary artery bypass x6 including left internal mammary artery to left anterior descending artery, saphenous vein to diagonal, marginal 1, marginal 2, and marginal 3 and saphenous vein to posterior descending branch of the right coronary and clipping of the left atrial appendage. INDICATIONS: The patient has a history of coronary artery disease and atrial fibrillation. This is an addendum to my dictated operative report. In that, I failed to describe placement of the left atrial clip. The previous operative report is correct, but failed to mention that after the establishment of cardiopulmonary arrest, the left atrial appendage was measured and then a 45 mm AtriClip was applied under direct vision and when we were satisfied with the placement, the clip was deployed. Cardioplegia had been given prior to placement of the clip and a dose was given after the clip was applied and then the distal anastomoses were performed as dictated. This should correctly describe the placement of the clip in the context of the operation. <ELECTRONICALLY SIGNED> By: Mateus Ramirez MD 10/06/20 0905 0728 0743 Mateus Ramirez MD /nt
--- NOTE | 2020-10-06 10:39 | EKG ---
[place] [address] [place] [address] ELECTROCARDIOGRAM REPORT Name: LUDWIG PAN Room #: 248-P ADM IN M.R.#: [id number] Admission: 10/03/20 Attend Phys: Jabier Beal MD Discharge: Date of : 55 Report #: [id number] [facility] Test Date: 2020-10-06 Test Time: 08:09:46 Pat Name: LUDWIG PAN Department: Room: 248 P Gender: M Crown Buffer: TITA : 1955 Requested By: Vidal Bangura Order Number: [id number] MD: Vidal Bangura Measurements Intervals [place] Rate: 104 P: VA: QRS: -11 QRSD: 80 T: 70 QT: 346 QTc: 455 Interpretive Statements Atrial fibrillation Inferior infarct, old Probable anteroseptal infarct, recent Compared to ECG 10/05/2020 07:56:31 Sinus rhythm no longer present Anterior Q waves are more prominent Electronically Signed On 10-06-2020 10:39:19 CDT by Vidal Bangura [email or web address] <ELECTRONICALLY SIGNED> By: Vidal Bangura MD, [facility] 10/06/20 1039 0809 08 Vidal Bangura MD, [facility] /EPI
--- NOTE | 2020-10-06 18:04 | NUR ---
PATIENT IS PROGRESSING TOWARDS OUTCOME GOALS. UP IN THE CHAIR SEVERAL TIMES TODAY. STERNAL PRECAUTIONS ENCOURAGED. PATIENT REMAINS IMPULSIVE. PRECEDEX CONTINUES AT A LOW DOSE. ABLE TO CALL FRIEND FLAQUITA AND SPEAK TO HIM. PHONE NUMBER WRITTEN ON WHITE BOARD FOR THE PATIENT.
[2020-10-07] VITALS (25 sets, daily range): BP systolic 61–150; BP diastolic 23–94
--- NOTE | 2020-10-07 06:00 | NUR ---
PT HAS BEEN VERY IMPULSIVE YELLING FOR ME TO KEEP AWAY FROM HIM. SAYS HE CANNOT BREATHE. O2 SAT 97 % ON ROOM AIR. HE TAKES THE O2 OFF AND ON HE WANTED TO GO OUT AMA. HIS FRIEND FLAQUITA SAID NO HE WOULD NOT GET HIM BECAUSE HE NEEDS TO STAY IN ICU. REMAINS ON PRECEDEX AT 1 MCG FOR AGITATION. ALL CHEST AND LEG DRESSINGS DRY AND INTACT. SINUS RHYTHM TO AFIB. LUNGS DIMINISHED BILAT. PROGRESSING TOWARD GOALS.
--- NOTE | 2020-10-07 09:55 | NUR ---
PT WOULD NOT RESPOND, OPEN EYES, OR RESPOND TO ANY VERBAL/PHYSICAL ATTEMPTS TO AROUSE PATIENT. PT HAD JUST BEEN TALKING WITH RN AND WAS AWARE THERAPY COMING IN. ATTEMPT IN AM TO EVAL
--- NOTE | 2020-10-07 10:06 | EKG ---
[place] [address] [address] [address] [place] [address] ELECTROCARDIOGRAM REPORT Name: LUDWIG PAN Room #: 248-P ADM IN M.R.#: [id number] Admission: 10/03/20 Attend Phys: Jabier Beal MD Discharge: Date of : 55 Report #: [id number] [facility] Test Date: 2020-10-07 Test Time: 07:25:10 Pat Name: LUDWIG PAN Department: Room: 248 P Gender: M Supervisory Investigative Specialist: ASH : 1955 Requested By: Vidal Bangura Order Number: [id number] MD: Vidal Bangura Measurements Intervals [place] Rate: 60 P: 46 NE: 210 QRS: -5 QRSD: 86 T: 43 QT: 442 QTc: 442 Interpretive Statements Sinus rhythm Inferior infarct, old Anterior infarct, old Compared to ECG 10/06/2020 08:09:46 Atrial fibrillation no longer present Anterior ST segment elevation is less pronounced Electronically Signed On 10-07-2020 10:06:13 CDT by Vidal Bangura [email or web address] <ELECTRONICALLY SIGNED> By: Vidal Bangura MD, [facility] 10/07/20 1006 4 4 Vidal Bangura MD, [facility] /EPI
--- NOTE | 2020-10-07 16:09 | NUR ---
Chart review. discussed during los and unite rounds. s/p cage. Waiting to leave today. Reported he anxious and hitting. BPCI. Will cont. following as needed for dc needs. Psych consult.
--- NOTE | 2020-10-07 18:39 | NUR ---
precedex off at 1230. pt was given prn norco. pt mentation improved. pt more calm and cooperative. pt sat upto chair and ate his dinner. pt verbalizes understanding of fall precautions and call light.
[2020-10-08] VITALS (9 sets, daily range): BP systolic 122–162; BP diastolic 70–94
[2020-10-08 04:56] LABS: BASOPHILS 0.4 % (0.0-2.0); EOSINOPHILS 1.4 % (0.0-3.0); HEMATOCRIT 29.5 % (42.0-52.0); LYMPHOCYTES 14.1 % (24.0-44.0); MCH 30.9 pg (26.0-34.0); MCHC 33.8 g/dL (28.0-37.0); MCV 91.4 fL (80.0-100.0); MONOCYTES 7.4 % (1.0-8.0); PLATELET COUNT 195 thou/uL (150-400); POLYS 76.7 % (36.0-66.0); RBC 3.23 mil/uL (4.50-6.00); RDW 13.9 % (10.5-14.5); WBC 10.4 thou/uL (4.0-11.0)
[2020-10-08 05:09] LABS: ALBUMIN 2.4 g/dL (3.4-5.0); CALCIUM 8.1 mg/dL (8.5-10.1); CREATININE 1.7 mg/dL (0.7-1.3); POTASSIUM 4.2 mmol/L (3.5-5.1); TOTAL BILIRUBIN 0.3 mg/dL (0.2-1.0); TOTAL PROTEIN 5.7 g/dL (6.4-8.2)
--- NOTE | 2020-10-08 06:00 | NUR ---
A DRAMATIC CHANGE IN PTS PERSONALITY IN THE PAST 24 HOURS. HE WAS COMBATIVE agitated AND CURSING 24 HOURS AGO AND NOW HE IS AWAKE AND ALERT VERY PLEASANT AND COOPERATIVE. A TRUE SHAINA NOW. VSS AFIB TO SINUS RHYTHM. STANDS UP TO VOID. O2 SAT 96% ON ROOM AIR. DRESSINGS DRY AND INTACT. PROGRESSING TOWARD GOALS. WILL CONT TO MONITOR. PT SHOULD TS TO CCU TODAY.
--- NOTE | 2020-10-08 09:00 | NUR ---
Chart review, discussed during am unite rounds. Cm able to visit with him at bedside, he was up in recliner chair. Intro to cm, and discharge planning. Pravin reported he is homeless and had been staying wit his daughter jennifer. He will not be able to return [facility] to [facility]. His mail goes to friends address and cant stay there either. Need to found apartment, i can afford. CM education on calling medicaid to see if can help and place on low income housing. i cant not afford much per pravin. Education on clinic to get help with rx after dc. Patient stated i go to clinic on [address] that is the name of the clinic. I was told i was going to do rehab here, not where i will go. per pravin. Cm education on extended stay motel. Manage own medication, no dme prior to hospital. Education short term rehab, I can stay here per pravin. Will have to see if 5n has eval. Will cont following as needed for dc needs.
--- NOTE | 2020-10-08 11:09 | EKG ---
[place] [address] [facility] [facility] [place] [address] ELECTROCARDIOGRAM REPORT Name: LUDWIG PAN Room #: 248-P ADM IN M.R.#: [id number] Admission: 10/03/20 Attend Phys: Jabier Beal MD Discharge: Date of : 55 Report #: [id number] [facility] Test Date: 2020-10-08 Test Time: 09:44:15 Pat Name: LUDWIG PAN Department: Room: 248 P Gender: M Certified Hyperbaric Technologist: ASH : 1955 Requested By: Butch Vega Order Number: [id number] MD: Tanner Arce Measurements Intervals [place] Rate: 114 P: DC: QRS: -7 QRSD: 85 T: QT: 317 QTc: 437 Interpretive Statements Atrial fibrillation Inferior infarct, old Anterior infarct, old Compared to ECG 10/07/2020 07:25:10 Sinus rhythm no longer present Myocardial infarct finding still present Electronically Signed On 10-08-2020 11:09:07 CDT by Tanner Arce [email or web address] <ELECTRONICALLY SIGNED> By: Tanner Arce MD, [facility] 10/08/20 1109 Tanner Arce MD, [facility] /EPI
--- NOTE | 2020-10-08 15:46 | NUR ---
1500-CHAIR ALARM GOING OFF.PT STANDING TO VOID.GOT SELF BACK TO BED.BED ALARM ON.WARM BLANKET,MENU GIVEN,TRYING TO NAP.--VW
[2020-10-09 04:03] VITALS: BP 144/81
--- NOTE | 2020-10-09 07:33 | NUR ---
ASSUMMED CARE OF THIS PATIENT FROM THE NIGHT NURSE ELISA RN. PATIENT IS IMPULSIVE. DIRECTIONS GIVEN TO CALL FOR ASSISTANCE HE IS UNSTEADY UNLESS HOLDING ON TO FURNITURE.
[2020-10-09 08:00] VITALS: BP 142/86
[2020-10-09 08:04] VITALS: BP 152/87
--- NOTE | 2020-10-09 10:36 | NUR ---
PATIENT IS REFUSING ANY ASSISTANCE OR THERAPY AT THIS TIME. STATES THAT HE WANTS TO SLEEP HE DID NOT GET ANY SLEEP LAST NIGHT. STATES THAT HE WANTS TO SHAVE BUT REFUSES ANY ASSISTANCE FROM THIS NURSE.
[2020-10-09 12:21] VITALS: BP 132/77
[2020-10-09 15:23] VITALS: BP 114/70
--- NOTE | 2020-10-09 17:15 | NUR ---
5N reevaling pt tomorrow as he did not participate with therapy today. CTS and cardiology aware and will talk with him about the importance of rehab. May need to consider SNF ([facility]) if he is not able to tolerate intensive rehab program. [facility] can assess if needed. Will see how he does with therapy tomorrow to determine his dc plan. [facility] and he does not have any benefits beyond inpt tx there if needed. Will follow.
--- NOTE | 2020-10-09 17:19 | NUR ---
FAXED SNF REFERRAL AND NEGATIVE COVID RESULT (10/03/20) TO [facility]. WILL CONFIRM WITH RUBI/ADMISSIONS THAT SHE RECEIVED AND BED AVAILABILITY. [facility] P [phone]; FAX [phone]; M [phone]
--- NOTE | 2020-10-09 18:29 | NUR ---
PATIENT IS PROGRESSING TOWARDS OUTCOME GOALS. AMBULATED AROUND THE UNIT THIS EVENING. C/O ABD BURNING, TUMS GIVEN WITH NO RELIEF. CALLS PLACED TO DR WESLEY WITH NO RESPONSE AT THIS TIME.
[2020-10-09 20:00] VITALS: BP 13/73
[2020-10-10 08:17] VITALS: BP 151/83
--- NOTE | 2020-10-10 10:53 | NUR ---
PT REFUSED THERAPY TODAY. OT PRESENTED 4 OPTIONS AND CONTINUED TO REFUSE. OT PRESENTED GETTING UP IN CHAIR, TOILETING, GROOMING, AND SPONGE BATH
--- NOTE | 2020-10-10 11:50 | NUR ---
[facility] liason to visit with pt about snf stay vs 5N acute rehab. Pt transfering out of ICU to 215 this am. Will follow.
[2020-10-10 11:55] VITALS: BP 128/78
--- NOTE | 2020-10-10 12:24 | NUR ---
PATIENT TRANSFERRED TO RM 215 WITH BELONGINGS
[2020-10-10 14:44] VITALS: BP 151/83
[2020-10-10 15:50] VITALS: BP 135/80
[2020-10-10] MEDS ORDERED: BAYER CHEWABLE81 MG PO (16:22)
[2020-10-10] MEDS ORDERED: HUMALOG100 UNIT/1 SUBQ (16:22)
[2020-10-10] MEDS ORDERED: XARELTO15 MG PO (16:22)
[2020-10-10] MEDS ORDERED: PROTONIX 20 MG20 M1 PO (16:22)
[2020-10-10] MEDS ORDERED: METOPROLOL SUCC50 MG PO (16:22)
[2020-10-10] MEDS ORDERED: DILTIAZEM 24HR180 M1 PO (16:22)
[2020-10-10] MEDS ORDERED: LIPITOR40 MG PO (16:22)
--- NOTE | 2020-10-10 18:27 | NUR ---
REPORT CALLED TO FLORENCIA ESCAMILLA AT [facility]. NO QUESTIONS OR CONCERNS AT TIME OF REPORT. IV REMOVED. TRANSPORT TO ARRIVE AT APPROX 1830
[2020-10-16 15:27] LABS: POC BE 4 mmol/L (-2.0 to +3.0); POC CA IONIZED 4.4 mg/dL (4.5-5.3); POC GLUCOSE 154 mg/dL (70-99); POC HCO3 28.3 mmol/L (22.0-26.0); POC HEMOGLOBIN 6.5 g/dL (14.0-18.0); POC SODIUM 139 mmol/L (136-145); POC pCO2 40.5 mmHg (35.0-45.0); POC pH 7.453 (7.360-7.450)
== END 2020-10-10 18:46 | DRG 235 ==
LOC: ER 23:26 → 2N 10-03 02:28 → EROBS 10-03 02:28 → TBA 10-03 02:28 → 2N 10-03 13:04 → TBA 10-04 12:07 → ICU 10-04 15:12 → 2N 10-10 11:45
PROVIDERS: Emergency Medicine; Internal Medicine; Nurse Practitioner Family; Physician Assistant; Surgery Vascular Surgery; ADMIT Hospitalist; ATTEND Hospitalist
PROC: 30233N1 Transfusion of Nonautologous Red Blood Cells into Peripheral Vein, Percutaneous Approach (ICD-10-PCS; principal; 2020-10-04)
PROC: 5A1221Z Performance of Cardiac Output, Continuous (ICD-10-PCS; principal; 2020-10-04)
PROC: 05HY33Z Insertion of Infusion Device into Upper Vein, Percutaneous Approach (ICD-10-PCS; principal; 2020-10-04)
PROC: 5A0935A Assistance with Respiratory Ventilation, Less than 24 Consecutive Hours, High Flow/Velocity Cannula (ICD-10-PCS; principal; 2020-10-04)
PROC: 021309W Bypass Coronary Artery, Four or More Arteries from Aorta with Autologous Venous Tissue, Open Approach (ICD-10-PCS; principal; 2020-10-04)
PROC: 02100Z9 Bypass Coronary Artery, One Artery from Left Internal Mammary, Open Approach (ICD-10-PCS; principal; 2020-10-04)
PROC: 06BQ4ZZ Excision of Left Saphenous Vein, Percutaneous Endoscopic Approach (ICD-10-PCS; principal; 2020-10-04)
PROC: 02L70CK Occlusion of Left Atrial Appendage with Extraluminal Device, Open Approach (ICD-10-PCS; 2020-10-04)
PROC: 5A0945A Assistance with Respiratory Ventilation, 24-96 Consecutive Hours, High Flow/Velocity Cannula (ICD-10-PCS; 2020-10-06)
DX: I21.4 Non-ST elevation (NSTEMI) myocardial infarction (principal); G93.41 Metabolic encephalopathy; I50.21 Acute systolic (congestive) heart failure; T81.11XA Postprocedural cardiogenic shock, initial encounter; E43 Unspecified severe protein-calorie malnutrition; N17.9 Acute kidney failure, unspecified; I48.20 Chronic atrial fibrillation, unspecified; I13.0 Hypertensive heart and chronic kidney disease with heart failure and stage 1 through stage 4 chronic kidney disease, or unspecified chronic kidney disease; I25.10 Atherosclerotic heart disease of native coronary artery without angina pectoris; I25.5 Ischemic cardiomyopathy; E78.5 Hyperlipidemia, unspecified; E11.42 Type 2 diabetes mellitus with diabetic polyneuropathy; R53.81 Other malaise; R41.0 Disorientation, unspecified; D69.6 Thrombocytopenia, unspecified; I65.23 Occlusion and stenosis of bilateral carotid arteries; D64.9 Anemia, unspecified; N18.2 Chronic kidney disease, stage 2 (mild); E11.22 Type 2 diabetes mellitus with diabetic chronic kidney disease; I48.0 Paroxysmal atrial fibrillation; Z20.822 Contact with and (suspected) exposure to COVID-19; F43.10 Post-traumatic stress disorder, unspecified; Z86.19 Personal history of other infectious and parasitic diseases; Z79.01 Long term (current) use of anticoagulants; Z82.49 Family history of ischemic heart disease and other diseases of the circulatory system; Z88.6 Allergy status to analgesic agent; Z87.891 Personal history of nicotine dependence; Z79.4 Long term (current) use of insulin; Z91.14 Patient's other noncompliance with medication regimen; Z59.0 Homelessness; Z79.82 Long term (current) use of aspirin; Z79.899 Other long term (current) drug therapy
CPT/HCPCS: 10078; 10081; 10203; 47000; 47001; 47002; 47297; 48889; 50011; 50249; 50668; 51301; 52131; 52259; 52287; 53327; 53358; 54118; 56455; 56524; 56525; 56526; 56527; 56528; 56531; 56534; 56668; 56719; 56760; 56898; 57093; 57102; 57116; 57167; 58585; 58901; 62110; 62950; 65003; 65020; 65120; 65135

== ENCOUNTER 2020-10-11 08:10 | Emergency (ER) | payer OTHER ==
[~2020-10-11] VITALS: Ht 165.1 cm; Wt 74.8 kg
--- NOTE | ~2020-10-11 | EMS ---
[facility] [address] [place] [address] EMS Patient Care Report Name: LUDWIG PAN Room #: DEP ABIGAIL Carter#: [id number] Admission: 10/11/20 Attend Phys: Discharge: 10/11/20 Date of : 55 Report #: [id number] THIS REPORT FOR: //name// Report Transmitted: 10/14/2020 12:05 EMS Care Summary [place], [place]/[facility] Incident [id number] @ 10/11/2020 07:46 Incident Location [address] [place] [address] E10 Patient LUDWIG PAN Male, 64 Years 1955 Patient Address [address] [place] [id number] Patient History Hypertension (HTN),Cardiac Condition - Other, Patient Allergies No known allergies, Patient Medications None Reported, Chief Complaint CP Disposition Transported No Lights/[place] Dispatch Reason Sick Person Transported To [facility] Narrative Upon arrival patient was laying on right side in side in assisted living center bed. Patient had a chief complaint of chest pain and stated he was currently having a heart attack. Patient had just received open heart surgery one week prior and left against medical advice the next day According to assisted [facility] [address] [place] [address] EMS Patient Care Report Name: LUDWIG PAN Room #: FAUSTINO Carter#: [id number] Admission: 10/11/20 Attend Phys: Discharge: 10/11/20 Date of : 55 Report #: [id number] staff. Patient was assisted to stretch her and taken to backup ambulance for further medical intervention and even is your vention and evaluation. Patient was then monitored while on route to hospital for any change in condition. Initial Vitals @08:01P: 88,CO: 2,SpO2: 94, @08:01P: 82,R: 18,BP: 116/63,Pain: 0/10,GCS: 15,SpO2: 93,Revised Trauma: 12, @08:00P: 84,R: 18,BP: 124/64,Pain: 0/10,GCS: 15,CO: 1,SpO2: 93,Revised Trauma: 12, Assessments @07:51MENTAL:No Abnormalities,SKIN:No Abnormalities,HEENT:Head/Face: No Abnormalities,Eyes: No Abnormalities,Neck/Airway: No Abnormalities,LUNG SOUNDS:General: No Abnormalities,Left Upper: No Abnormalities,Right Upper: No Abnormalities,Left Lower: No Abnormalities,Right Lower: No Abnormalities,ABDOMEN:General: No Abnormalities,Left Upper: No Abnormalities,Right Upper: No Abnormalities,Left Lower: No Abnormalities,Right Lower: No Abnormalities,PELVIS//GI:No Abnormalities,EXTREMITIES:Capillary Refill: Right Upper: < 2 Sec,Capillary Refill: Left Upper: < 2 Sec,Left Arm: No Abnormalities,Right Arm: No Abnormalities,Left Leg: No Abnormalities,Right Leg: No Abnormalities,PULSE:Radial: 2+ Normal,NEURO:No Abnormalities, Impression Chest Pain / Discomfort Procedures @07:51ALS AssessmentResponse: UnchangedSucceeded@08:0112-Lead ECG@07:55 cc () @07:55Aspirin - - Timeline 07:44,Call Received 07:44,Dispatch Notified 07:46,Dispatched 07:47,En Route 07:50,On Scene 07:51,At Patient 07:51,ALS Assessment,Response: UnchangedSucceeded, 07:55, cc Site: , 07:55,Aspirin - - , 08:00,BP: 124/64 M,PULSE: 84,RR: 18 R,SPO2: 93 Ox,ETCO2: ,BG: ,PAIN: 0,GCS: 15, 08:01,12-Lead ECG, 08:01,BP: / M,PULSE: 88,RR: R,SPO2: 94 Ox,ETCO2: ,BG: ,PAIN: ,GCS: , 08:01,BP: 116/63 M,PULSE: 82,RR: 18 R,SPO2: 93 Ox,ETCO2: ,BG: ,PAIN: 0,GCS: 15, 08:03,Depart Scene 08:05,At Destination 08:15,Call Closed [facility] [address] [place] [address] EMS Patient Care Report Name: TESHAGABRIELOUSMANELUDWIG Room #: DEP ABIGAIL Carter#: [id number] Admission: 10/11/20 Attend Phys: Discharge: 10/11/20 Date of : 55 Report #: [id number] Disclaimer v1.1 Copyright 2020 [employer] This EMS Care Summary contains data elements from the applicable legal record (which may be displayed differently). It is designed to provide pertinent information for the following purposes: continuity of care, clinical quality, and state data reporting. The complete legal record is available to ED staff and administrators of the receiving hospital in [employer]'s Patient Tracker. All data is provided "as is."
[~2020-10-11 08:10] MED LIST changes: +BAYER CHEWABLE81 MG PO; +DILTIAZEM 24HR180 M1 PO; +HUMALOG100 UNIT/1 SUBQ; +LIPITOR40 MG PO; +METOPROLOL SUCC50 MG PO; +PROTONIX 20 MG20 M1 PO; +XARELTO15 MG PO
[2020-10-11 08:38] LABS: ABSOLUTE NEUTROPHILS 6.9 thou/uL (1.4-8.2); BASOPHILS 0.5 % (0.0-2.0); HEMATOCRIT 29.5 % (42.0-52.0); HEMOGLOBIN 10.1 gm/dL (14.0-18.0); LYMPHOCYTES 12.6 % (24.0-44.0); MCH 30.8 pg (26.0-34.0); MCHC 34.1 g/dL (28.0-37.0); MCV 90.1 fL (80.0-100.0); PLATELET COUNT 273 thou/uL (150-400); POLYS 75.9 % (36.0-66.0); RBC 3.27 mil/uL (4.50-6.00); WBC 9.1 thou/uL (4.0-11.0)
[2020-10-11 08:45] LABS: CALCIUM 8.2 mg/dL (8.5-10.1); CREATININE 1.5 mg/dL (0.7-1.3); POTASSIUM 4.7 mmol/L (3.5-5.1)
[2020-10-11 08:54] LABS: ALBUMIN 2.5 g/dL (3.4-5.0); TOTAL BILIRUBIN 0.4 mg/dL (0.2-1.0); TOTAL PROTEIN 5.7 g/dL (6.4-8.2)
[2020-10-11 08:56] LABS: TROPONIN-I 1.02 ng/mL (<0.06)
--- NOTE | 2020-10-11 09:06 | EKG ---
[place] [address] [facility] [place] [address] ELECTROCARDIOGRAM REPORT Name: LUDWIG PAN Room #: REG ABIGAIL Carter#: [id number] Admission: 10/11/20 Attend Phys: Discharge: Date of : 55 Report #: [id number] [facility] Test Date: 2020-10-11 Test Time: 08:11:49 Pat Name: LUDWIG PAN Department: Room: Gender: M Desktop Support Associate: marianela : 1955 Requested By: Karen Munoz Order Number: [id number] MD: Vidal Bangura Measurements Intervals [place] Rate: 90 P: NV: QRS: -11 QRSD: 70 T: QT: 472 QTc: 578 Interpretive Statements Atrial fibrillation Nonspecific T wave abnormality Prolonged QT interval Baseline wander in lead(s) V1 Compared to ECG 10/08/2020 09:44:15 Repolarization abnormality is no longer present Electronically Signed On 10-11-2020 9:06:07 CDT by Vidal Bangura [email or web address] <ELECTRONICALLY SIGNED> By: Vidal Bnagura MD, [facility] 10/11/20905 0 0 Vidal Bangura MD, [facility] /EPI
[2020-10-11 10:00] VITALS: BP 154/100
[2020-10-12] MEDS ORDERED: PROBIOTIC1 EAC1 PO (20:31)
== END 2020-10-11 10:00 ==
LOC: ER 08:10
PROVIDERS: Emergency Medicine
DX: R07.89 Other chest pain (principal); E13.9 Other specified diabetes mellitus without complications; I10 Essential (primary) hypertension; I48.91 Unspecified atrial fibrillation; I42.9 Cardiomyopathy, unspecified; Z79.82 Long term (current) use of aspirin; Z79.899 Other long term (current) drug therapy; Z79.4 Long term (current) use of insulin; Z88.6 Allergy status to analgesic agent; Z87.891 Personal history of nicotine dependence

== ENCOUNTER 2020-10-12 17:18 | Inpatient (IN) | payer OTHER ==
[~2020-10-12] VITALS: Ht 170.2 cm; Wt 69.4 kg
--- NOTE | ~2020-10-12 | EMS ---
[address] [address] EMS Patient Care Report Name: LUDWIG PAN Room #: 248-P ADM IN M.R.#: [id number] Admission: 10/12/20 Attend Phys: Elaine Costello MD Discharge: Date of : 55 Report #: [id number] THIS REPORT FOR: //name// Report Transmitted: 10/14/2020 13:23 EMS Care Summary [place], [place]/[facility] Incident [id number] @ 10/12/2020 16:33 Incident Location [facility] E10 Patient LUDWIG WOODALL Male, 64 Years 1955 Patient Address [address] [place] [address] [address] [place] [address] Patient History Diabetes,Cardiac Condition - Other, Patient Allergies No known allergies, Patient Medications Insulin, Chief Complaint Altered mental status, bradycardia, high bgl Disposition Transported Lights/[place] Dispatch Reason Falls Transported To [facility] Narrative Called for a patient with chest pain. Upon arrival found T15 and nursing staff by the patient's side. The nursing staff explained that they called T15 for a lift assist because the patient was rolling around on the ground and would not [facility] [address] [place] [address] EMS Patient Care Report Name: LUDWIG PAN Room #: 248-P ADM IN .R.#: [id number] Admission: 10/12/20 Attend Phys: Elaine Costello MD Discharge: Date of : 55 Report #: [id number] go back into his bed. T15 informed ems that the patient told them he wanted to go to the er but wouldn't say why so they called for chest pain because of his CABG sorcery. The patient would only moan in pain and told ems to check his BGL because he thinks it is low. He would not answer any other questions. The nurse informed ems that the patient went to the er just yesterday for the same thing and they related it to behavioral problems. EMS noticed a BGL that read Hi. EMS also noticed bandages on his chest which the nurse said is from a recent CABG surgery. EMS started an IV and placed the patient on oxygen. EMS applied the 4 lead, but did not look at it right away because they began to type in the patient's information into the computer. The patient then began to moan less and his breathing began to decrease. EMS noticed on monitor that he was going Bradycardia. Patient continued to have a pulse. EMS began to pace the heart. EMS had a difficult time pacing because the patient was sweaty and the pads/electrodes would not stick well. The patient would also wake up while being paced and try to take the stuff of him, but then go unresponsive when pacing was paused. EMS waited for P36 to get on scene before transporting incase patient went into cardiac arrest and because he was fighting the pacer. Patient was restrained and transported to the er. Pacing continued in the er until the er had their pacer ready. Patient care was given to the er nurse. Initial Vitals @17:13P: 29,R: 18,BP: 111/61,Pain: 0/10,GCS: 15,SpO2: 97,Revised Trauma: 12, @16:50P: 55,R: 18,BP: 90/60,Pain: 0/10,GCS: 15,Glucose: -2,SpO2: 97,Revised Trauma: 12, Assessments @16:50MENTAL:Other,SKIN:Diaphoresis,HEENT:Head/Face: No Abnormalities,Neck/Airway: No Abnormalities,LUNG SOUNDS:General: No Abnormalities,ABDOMEN:General: No Abnormalities,PELVIS//GI:EXTREMITIES:Left Arm: No Abnormalities,Right Arm: No Abnormalities,Left Leg: No Abnormalities,PULSE:NEURO:No Abnormalities,@17:15 Impression Cardiac arrhythmia/dysrhythmia Procedures @16:49ALS AssessmentResponse: UnchangedSucceeded@16:50StretcherResponse: Unchanged@16:57Saline Lock 10cc (20 ga) Site: Hand-LeftResponse: UnchangedSucceeded@16:59Oxygen FlowRate: 15 Device: Non Re-breather Mask (NRB) Response: UnchangedSucceeded@17:003-Lead ECGResponse: UnchangedSucceeded@17:04Response: Improved@17:07Response: Worse@17:07Response: Improved@17:19Response: Unchanged Timeline 16:18,Call Received 16:18,Dispatch Notified [address] [address] EMS Patient Care Report Name: LUDWIG PAN Room #: 248-P ADM IN M.R.#: [id number] Admission: 10/12/20 Attend Phys: Elaine Costello MD Discharge: Date of : 55 Report #: [id number] 16:33,Dispatched 16:33,En Route 16:43,On Scene 16:46,At Patient 16:49,ALS Assessment,Response: UnchangedSucceeded, 16:50,Stretcher,Response: Unchanged 16:50,BP: 90/60 M,PULSE: 55,RR: 18 R,SPO2: 97 Ox,ETCO2: ,BG: -2,PAIN: 0,GCS: 15, 16:57,Saline Lock 10cc 20 ga Site: Hand-Left,Response: UnchangedSucceeded, 16:59,Oxygen FlowRate: 15 Device: Non Re-breather Mask (NRB) Response: UnchangedSucceeded, 17:00,3-Lead ECG,Response: UnchangedSucceeded, 17:04,Response: Improved 17:07,Response: Worse 17:07,Response: Improved 17:13,Depart Scene 17:13,BP: 111/61 M,PULSE: 29,RR: 18 R,SPO2: 97 Ox,ETCO2: ,BG: ,PAIN: 0,GCS: 15, 17:19,Response: Unchanged 17:45,At Destination 17:51,Call Closed Disclaimer v1.1 Copyright 2020 [employer] This EMS Care Summary contains data elements from the applicable legal record (which may be displayed differently). It is designed to provide pertinent information for the following purposes: continuity of care, clinical quality, and state data reporting. The complete legal record is available to ED staff and administrators of the receiving hospital in [employer]'s Patient Tracker. All data is provided "as is."
[2020-10-12 17:49] LABS: ABSOLUTE NEUTROPHILS 8.9 thou/uL (1.4-8.2); BASOPHILS 0.3 % (0.0-2.0); HEMOGLOBIN 9.8 gm/dL (14.0-18.0); LYMPHOCYTES 13.3 % (24.0-44.0); MCH 29.8 pg (26.0-34.0); MCHC 31.8 g/dL (28.0-37.0); MCV 93.8 fL (80.0-100.0); MONOCYTES 6.3 % (1.0-8.0); POLYS 78.1 % (36.0-66.0); WBC 11.4 thou/uL (4.0-11.0)
[2020-10-12 17:52] LABS: PLATELET COUNT 390 thou/uL (150-400)
[2020-10-12 18:02] LABS: APTT 23.2 Seconds (24.5-32.8); INR 1.02; PROTIME 11.1 Seconds (10.5-12.1)
[2020-10-12 18:06] LABS: ALBUMIN 2.3 g/dL (3.4-5.0); CALCIUM 8.3 mg/dL (8.5-10.1); CREATININE 2.1 mg/dL (0.7-1.3); POTASSIUM 5.4 mmol/L (3.5-5.1); TOTAL BILIRUBIN 0.5 mg/dL (0.2-1.0); TOTAL PROTEIN 5.6 g/dL (6.4-8.2)
[2020-10-12 18:14] LABS: TROPONIN-I 0.68 ng/mL (<0.06)
[2020-10-12 19:04] LABS: BE(vivo) -3.8 mmol/L (-2 to +3); HCO3 20.3 mmol/L (22.0-26.0); PCO2 33.7 mmHg (35.0-45.0); PO2 201.3 mmHg (80.0-100.0); pH 7.397 (7.360-7.450); sO2 99.4 % (92.0-98.0)
[2020-10-12] MEDS ORDERED: PROBIOTIC1 EAC1 PO (20:31)
[2020-10-12 20:53] LABS: URINE BILIRUBIN NEGATIVE (Negative); URINE BLOOD TRACE (Negative); URINE CLARITY CLEAR; URINE COLOR YELLOW; URINE GLUCOSE-RANDOM* 3+ (Negative); URINE KETONES NEGATIVE (Negative); URINE LEUKOCYTES-REFLEX NEGATIVE (Negative); URINE NITRITE-REFLEX NEGATIVE (Negative); URINE PROTEIN (DIPSTICK) 2+ (Negative); URINE SPECIFIC GRAVITY 1.015 (1.005-1.035)
[2020-10-12 21:04] LABS: SQUAMOUS 4-10 Moderate /LPF (0-3)
[2020-10-12 21:05] LABS: BACTERIA-REFLEX None Seen /HPF (None Seen); CASTS None Seen /LPF (None Seen); CRYSTALS None Seen /LPF (None Seen); MUCUS 0-3 Light strn/LPF (None Seen); URINE RBC 3-10 Few /HPF (NONE SEEN); URINE WBC-REFLEX 0-5 Rare /HPF (0-5)
[2020-10-12 22:52] VITALS: BP 127/61
[2020-10-12 23:30] VITALS: BP 127/64
[2020-10-12 23:35] VITALS: BP 131/69
[2020-10-12 23:40] VITALS: BP 178/91
--- NOTE | 2020-10-12 23:40 | NUR ---
Pt arrived ICU via stretcher, accompanied with ER staffs and RT to room 248. He is intubated and sedated. He became restless and agitated once lighten up sedation. on Dopamine gtt at this time. quality assurance monitor chassis is showing SR with 1 degree AVB and BBB. Hx obtained from old medical records. Assessment completed. Continue workiong toward of goals.
[2020-10-13] VITALS (85 sets, daily range): BP systolic 91–205; BP diastolic 41–161
--- NOTE | 2020-10-13 00:30 | NUR ---
Start heparin gtt per DVT protocol.
--- NOTE | 2020-10-13 04:30 | NUR ---
Dompamine gtt off . Continue to monitor any changes.
[2020-10-13 06:17] LABS: ALBUMIN 2.2 g/dL (3.4-5.0); CALCIUM 7.9 mg/dL (8.5-10.1); CREATININE 1.7 mg/dL (0.7-1.3); TOTAL BILIRUBIN 0.3 mg/dL (0.2-1.0); TOTAL PROTEIN 5.3 g/dL (6.4-8.2)
[2020-10-13 06:30] LABS: POTASSIUM 3.5 mmol/L (3.5-5.1)
[2020-10-13 07:11] LABS: ABSOLUTE NEUTROPHILS 10.6 thou/uL (1.4-8.2); BASOPHILS 0.3 % (0.0-2.0); EOSINOPHILS 0.3 % (0.0-3.0); HEMATOCRIT 27.3 % (42.0-52.0); LYMPHOCYTES 10.2 % (24.0-44.0); MCH 29.7 pg (26.0-34.0); MCV 89.9 fL (80.0-100.0); MONOCYTES 4.1 % (1.0-8.0); POLYS 85.1 % (36.0-66.0); RBC 3.03 mil/uL (4.50-6.00); RDW 13.7 % (10.5-14.5); WBC 12.4 thou/uL (4.0-11.0)
[2020-10-13 07:14] LABS: PLATELET COUNT 314 thou/uL (150-400)
--- NOTE | 2020-10-13 10:25 | NUR ---
ASSUMED CARE OF PT AT 0700. PT SEDATED AND INTUBATED. BILATERAL SOFT WRIST RESTRAINS IN PLACE. PT ABLE TO MOVE ALL EXTREMETIES. DOPAMINE GTT OFF AND PT MAINTAINING HR IN 70s. INSULIN GTT TITRATED OFF AT 0845 PER PROTOCOL. WILL CONTINUE TO MONITOR BG TREND. ATTEMPTED TO CALL HAYLEY CHAVEZ THIS AM AND WAS UNABLE TO CONTACT HER. WILL CONTINUE TO MONITOR PT.
[2020-10-13 15:22] LABS: BE(vivo) -2.3 mmol/L (-2 to +3); HCO3 20.8 mmol/L (22.0-26.0); PCO2 29.9 mmHg (35.0-45.0); PO2 111.4 mmHg (80.0-100.0); pH 7.461 (7.360-7.450); sO2 98.4 % (92.0-98.0)
--- NOTE | 2020-10-13 19:49 | NUR ---
pt continues to act out threatening staff and calling family/friends offering them money to come and get him from the hospital, pt so far has been unable to get any one to agree to come and get him from the hospital and on assessment he has demonstrated that he does not understand he has medical issues that could kill him if he left now. Dr Fenton called and message left for him to call with directions, security now in pts room with him as he continues to be agressive and resistant to staff attempting to care for him
[2020-10-14] VITALS (29 sets, daily range): BP systolic 104–166; BP diastolic 51–111
[2020-10-14 07:08] LABS: HEMATOCRIT 24.1 % (42.0-52.0); HEMOGLOBIN 8.3 gm/dL (14.0-18.0); MCH 30.6 pg (26.0-34.0); MCHC 34.4 g/dL (28.0-37.0); MCV 88.8 fL (80.0-100.0); RBC 2.71 mil/uL (4.50-6.00); RDW 13.9 % (10.5-14.5); WBC 10.9 thou/uL (4.0-11.0)
[2020-10-14 07:33] LABS: CALCIUM 7.6 mg/dL (8.5-10.1); CREATININE 1.6 mg/dL (0.7-1.3); POTASSIUM 3.8 mmol/L (3.5-5.1)
--- NOTE | 2020-10-14 10:41 | 2DMMODE ---
[facility] [address] [place] [address] 2 D/M-MODE ECHOCARDIOGRAM Name: LUDWIG PAN Room #: 248-P ADM IN M.R.#: [id number] Admission: 10/12/20 Attend Phys: Elaine Costello MD Discharge: Date of : 55 Report #: [id number] THIS REPORT FOR: cc: CALLI Mendoza family physician/PCP CALLI - Kelly family physician/PCP Tanner Arce MD [facility] ~ APPROVED REPORT Study performed: 10/14/2020 09:37:52 EXAM: Comprehensive 2D, Doppler, and color-flow Echocardiogram Patient Location: ICU Room #: 248 Status: routine BSA: 1.80 HR: 86 bpm BP: 128/104 mmHg Rhythm: Atrial Fibrillation Other Information Study Quality: Technically Limited Technically limited study due to uncooperative patient. Indications Atrial Fibrillation CAD Cardiomyopathy Hypertension/HDD Arrest Volumes Left Atrial Volume (Systole) Single Plane 4CH: 85.99 mL Single Plane 2CH: 70.46 mL LA ESV Index: 49.00 mL/m2 Aortic Valve AoV Peak Mohamud.: 1.49 m/s AO Peak Gr.: 8.85 mmHg LVOT Max P.98 mmHg LVOT Max V: 1.00 m/s Pulmonary Valve PV Peak Mohamud.: 1.02 m/s PV Peak Gr.: 4.20 mmHg [facility] [address] [place] [address] 2 D/M-MODE ECHOCARDIOGRAM Name: LUDWIG PAN Room #: 248-P ADM IN M.R.#: [id number] Admission: 10/12/20 Attend Phys: Elaine Costello, Discharge: Date of : 55 Report #: [id number] Tricuspid Valve TR Peak Mohamud.: 2.59 m/s TR Peak Gr.: 26.81 mmHg PA Pressure: 32.00 mmHg Left Ventricle The left ventricle is normal size. There is hypokinesis in the mid to distall septal wall. There is normal left ventricular wall thickness. Left ventricular systolic function is borderline. LVEF is 50%. This study is not technically sufficient to allow evaluation of the LV diastolic function due to atrial fibrillation. Right Ventricle The right ventricle is normal size. The right ventricular systolic function is normal. Atria Left atrium is dilated. The right atrium size is normal. Aortic Valve The aortic valve is normal in structure. The Aortic valve is sclerotic. No aortic regurgitation is present. There is no aortic valvular stenosis. Mitral Valve The mitral valve is normal in structure. Trace to mild mitral regurgitation. No evidence of mitral valve stenosis. Tricuspid Valve The tricuspid valve is normal in structure. There is trace tricuspid regurgitation.Estimated PAP 32 mmHg. There is mild pulmonary hypertension. Pulmonic Valve The pulmonary valve is normal in structure. There is no pulmonic valvular regurgitation. Great Vessels The aortic root is normal in size. IVC is not well visualized. Pericardium There is no pericardial effusion. <Conclusion> [facility] [address] [place] [address] 2 D/M-MODE ECHOCARDIOGRAM Name: LUDWIG PAN Room #: 248-P ADM IN M.R.#: [id number] Admission: 10/12/20 Attend Phys: Elaine Costello, Discharge: Date of : 55 Report #: [id number] Study performed in atrial fibrillation Normal left ventricle size/wall thickness Ejection fraction 50% with severe anteroseptal hypokineses Normal right ventricular size/function Color-flow Doppler study was performed of the aortic/mitral/tricuspid/pulmonary valve Moderate left atrial enlargement Aortic valve calcification without stenosis Moderate mitral annular calcification, no stenosis Mild mitral valve insufficiency Mild tricuspid valve insufficiency Pulmonary systolic pressure estimated 32 mmHg No pericardial effusion Normal aortic root size <ELECTRONICALLY SIGNED> By: Tanner Arce MD, FACC 10/14/20 1041 40 40 Tanner Arce MD, FACC /INF
--- NOTE | 2020-10-14 11:58 | NUR ---
64 year old male with a history of NSTEMI s/p CABG x2, postop cardiogenic shock on pressor, acute on chronic anemia, CARRILLO, CKD, toxic metabolic encephalopathy, hyperlipidemia, A. fib with RVR, ICM with EF 40%, hypertension, and diabetes who presents to the ED from facility a rehab SNF with concerns of altered mental status and bradycardia. Per Ibrahima at [facility] patient insisted to be sent to the ED after discharging from the hospital less than 24 hours. Patient assessed at [facility] and found no change when patient threw himself on the floor and told the staff they now had to discharge him back to the hospital. Patient admitted with Venous thrombosis, S/p CABG. Of note from last admission patient is estranged from daughter and is homeless. Patient refuses therapy which negated his ability to possible candidacy for acute rehab. Patient stated he has VA benefits and upon CM contact the patient does not. As patient should or could not participate in acute rehab on 10-10-20 the patient agreed to skilled level of care. Pending orders for PT/OT and patient participation; CM will follow for discharge needs.
--- NOTE | 2020-10-14 19:24 | HC ---
[facility] [place] [address] [place] [address] CONSULTATION Name: LUDWIG PAN Room #: 248-P ADM IN M.R.#: [id number] Admission: 10/12/20 Attend Phys: Elaine Costello MD Discharge: Date of : 55 Report #: [id number] THIS REPORT FOR: cc: CALLI - No family physician/PCP FAM - No family physician/PCP Wang Goodman MD ~ DATE OF SERVICE: 10/13/2020 INFECTIOUS DISEASE CONSULTATION REASON FOR CONSULTATION: I was asked to evaluate concerning healthcare-associated pneumonia and respiratory failure. HISTORY OF PRESENT ILLNESS: The patient is a 64-year-old with history of non-STEMI, underwent a coronary artery bypass grafting on 10/04/2020. Postoperatively, he was at longterm facility for rehabilitation. While there, he became bradycardic with associated altered mental status and was found down with a heart rate of 20 beats per minute. He was externally paced and transported to the Emergency Room for further care, now in the intensive care unit, intubated, sedated, now in sinus rhythm. He is on FiO2 of 30%. He has a left IJ in place and a Simms catheter. There has been no drainage from his sternum. He is arousable. Concern for suspected aspiration. There has been no previous nausea, vomiting or diarrhea. The patient was unable to give 14-point review of systems as he was intubated and sedated. ALLERGIES: CODEINE. MEDICATIONS: As noted on his MAR, which were reviewed. He had been on Xarelto, Lipitor, metoprolol, diltiazem, aspirin, and pantoprazole. PAST MEDICAL HISTORY: Anemia, acute kidney injury, chronic kidney disease, thrombocytopenia, non-STEMI, coronary bypass grafting x2 on 10/04/2020, postoperative cardiogenic shock, diabetes, hepatitis C, hypertension, atrial fibrillation, hyperlipidemia, ischemic cardiomyopathy, right lower extremity cellulitis. FAMILY HISTORY: Not available. SOCIAL HISTORY: Past smoker and past alcohol use. PHYSICAL EXAMINATION: GENERAL: He was afebrile and hemodynamically stable. SKIN: Without rash or decubitus. His sternum was intact with dressing dry. LUNGS: Coarse anteriorly. HEART: Regular, without appreciable murmur, gallop or rub. ABDOMEN: Soft and nontender. [address] [address] CONSULTATION Name: [facility] Room #: 248-P [facility] IN .R.#: [id number] Admission: 10/12/20 Attend Phys: Elaine Costello MD Discharge: Date of : 55 Report #: [id number] EXTREMITIES: Without clubbing, cyanosis or edema. His left lower extremity vein harvest sites were unremarkable. The patient did move all extremities. EYES: Without scleral icterus or conjunctivitis. MOUTH: Without mucositis. NECK: Supple. His left IJ catheter without drainage. GENITALIA: External genitalia without mass or lesion and an indwelling Simms catheter. RECTAL: Examination not performed. LABORATORY DATA: Reviewed. CHEST X-RAY: Reviewed. MICROBIOLOGY: Reviewed, noting one positive blood culture for Gram-positive cocci. Sputum culture is pending. Chest x-ray showed mild bibasilar non-consolidated interstitial infiltrate. CT of the chest showed bilateral effusions, moderate on the right, small on the left. ASSESSMENT AND PLAN: 1. A 64-year-old nine days' post coronary artery bypass grafting with symptomatic bradycardia leading to respiratory arrest and suspected aspiration pneumonia, complicating congestive heart failure. 2. Diabetes mellitus. 3. Acute kidney injury. 4. Toxic metabolic encephalopathy. 5. Right internal jugular DVT. 6. Ischemic cardiomyopathy. 7. Atrial fibrillation. 8. Hyperlipidemia. RECOMMENDATION: We will continue with broad antibiotic coverage for healthcare-associated pneumonia including vancomycin and cefepime, adjusted for his renal failure. I have discussed with pulmonary critical care service regarding management. Serial laboratory studies and chest x-ray. If no improvement, we will need to consider thoracentesis. We will await identification of the bacteremia and check sputum culture results when available. <ELECTRONICALLY SIGNED> By: Wang Goodman MD 10/14/20 [id number] [id number] Wang Goodman MD /nt
--- NOTE | 2020-10-14 22:00 | NUR ---
PT GETTING UP FROM BED, STATING "I NEED SOMETHING TO HELP ME SLEEP, THAT THING YOU GAVE ME DIDN'T WORK." PT THEN STATES, "I CAN'T BREATHE" PUSHING AIR IN AND OUT WITH NOTABLE INTENTIONAL EFFORT. HELPED TO CHAIR, GAVE WARM BLANKET PER REQUEST AND CALLED LIZZETH GAUTAM WITH UPDATE AND PT REQUEST FOR MEDICATION. ORDERS RECIEVED FOR BENADRYL, TO CALL BACK IF THAT DOESN'T WORK
[2020-10-15] VITALS (8 sets, daily range): BP systolic 137–161; BP diastolic 68–97
--- NOTE | 2020-10-15 06:09 | NUR ---
PT RESTING QUIETLY AFTER TRAZADONE, WOKE UP ONCE TO REQUEST MORE BLANKETS AND FELL BACK ASLEEP. PULLS OFF 02 SAT PROBE AND BP CUFF, SPOT CHECKED BY THIS RN. PT DOES NOT FOLLOW INSTRUCTIONS AND CONTINUES TO EXHIBIT IMPULSIVE BEHAVIOR WHEN AWAKE.
[2020-10-15 06:45] LABS: HEMATOCRIT 24.9 % (42.0-52.0); HEMOGLOBIN 8.5 gm/dL (14.0-18.0); MCH 30.6 pg (26.0-34.0); MCHC 33.9 g/dL (28.0-37.0); MCV 90.3 fL (80.0-100.0); RBC 2.76 mil/uL (4.50-6.00); RDW 14.4 % (10.5-14.5); WBC 7.7 thou/uL (4.0-11.0)
[2020-10-15 06:55] LABS: CALCIUM 7.9 mg/dL (8.5-10.1); CREATININE 1.5 mg/dL (0.7-1.3); POTASSIUM 4.1 mmol/L (3.5-5.1)
--- NOTE | 2020-10-15 08:11 | NUR ---
Message from [facility] fran r/t bed hold police and no contacts. Pravin from skilled rehab at [facility] prior to that he had stayed with friend, daughter and is homeless. Cm called left message with matt allen [phone].
--- NOTE | 2020-10-15 12:15 | NUR ---
spoke with ailyn peters, liaison they can possible take him back if we will agree to not throw himself on the floor when not getting his way. Cm passed on information to hospitalist and will cont following as needed for dc needs.
[2020-10-15] MEDS ORDERED: AMOX TR-K CLV1 EAC4 PO ×2 (13:35→16:39)
[2020-10-15] MEDS ORDERED: XARELTO15 MG PO ×2 (13:39→16:39)
[2020-10-15] MEDS ORDERED: TRAZODONE HCL50 MG PO ×2 (13:40→16:39)
[2020-10-15] MEDS ORDERED: METOPROLOL SUCC25 M1 PO ×2 (13:40→16:39)
[2020-10-15] MEDS ORDERED: VISTARIL 25 MG25 M1 PO ×2 (13:41→16:39)
[2020-10-15] MEDS ORDERED: TRADJENTA5 MG PO ×2 (13:42→16:39)
[2020-10-15] MEDS ORDERED: PROTONIX 20 MG20 M1 PO (16:39)
--- NOTE | 2020-10-15 18:40 | NUR ---
previously hortencia, called from case management. pt's clothing to be brought over from [facility]. rn spoke with Dr. Cosme. with pt's new preferred pharmacy in the computer, when RN asked Dr. Cosme, he replaced the automated medications scripts to go to the appropiate pharmacy for pt pickup. Hortencia, brought good rx cards and medication specific discount cards to assist pt with obtaining medication. after call(s) to [facility] to obtain clothing unsuccessfully, RN able to obtain shorts and top from emergency room "[facility] clothing closet". discussed discharge instructions, importance of medications especially antibiotic for post surgical incisions and for new medication to treat blood clots. pt was intentionally not listening and continued to talk louder than the rn to avoid hearing these important instructions. pt sent to address he decided upon per hospital voucher for cab. to emergency room with rn assist to wait for cab's arrival. minimal vs obtained today. pt would take bp cuff off as soon as placed to avoid having bp recorded, furthermore new sao2 probe was unuseable, demolished by pt rendering it useless.
== END 2020-10-15 18:40 | disposition home or self-care (01) | DRG 871 ==
LOC: ER 17:18 → ICU 22:33 → EROBS 22:33 → ICU 23:37
PROVIDERS: Emergency Medicine; Hospitalist; Nurse Practitioner Family; ADMIT Internal Medicine; ATTEND Internal Medicine
PROC: 05HY33Z Insertion of Infusion Device into Upper Vein, Percutaneous Approach (ICD-10-PCS; principal; 2020-10-12)
PROC: 5A1935Z Respiratory Ventilation, Less than 24 Consecutive Hours (ICD-10-PCS; principal; 2020-10-12)
PROC: 0BH17EZ Insertion of Endotracheal Airway into Trachea, Via Natural or Artificial Opening (ICD-10-PCS; principal; 2020-10-12)
DX: A41.1 Sepsis due to other specified staphylococcus (principal); J69.0 Pneumonitis due to inhalation of food and vomit; I21.4 Non-ST elevation (NSTEMI) myocardial infarction; R57.0 Cardiogenic shock; G92 Toxic encephalopathy; I50.21 Acute systolic (congestive) heart failure; J96.21 Acute and chronic respiratory failure with hypoxia; N17.9 Acute kidney failure, unspecified; E87.2 Acidosis; I82.C11 Acute embolism and thrombosis of right internal jugular vein; I82.612 Acute embolism and thrombosis of superficial veins of left upper extremity; I13.0 Hypertensive heart and chronic kidney disease with heart failure and stage 1 through stage 4 chronic kidney disease, or unspecified chronic kidney disease; I82.622 Acute embolism and thrombosis of deep veins of left upper extremity; I48.0 Paroxysmal atrial fibrillation; E11.65 Type 2 diabetes mellitus with hyperglycemia; E11.22 Type 2 diabetes mellitus with diabetic chronic kidney disease; R77.8 Other specified abnormalities of plasma proteins; Z20.822 Contact with and (suspected) exposure to COVID-19; I25.5 Ischemic cardiomyopathy; E78.5 Hyperlipidemia, unspecified; N18.9 Chronic kidney disease, unspecified; I65.23 Occlusion and stenosis of bilateral carotid arteries; I95.9 Hypotension, unspecified; I25.10 Atherosclerotic heart disease of native coronary artery without angina pectoris; D64.9 Anemia, unspecified; Z79.4 Long term (current) use of insulin; Z86.19 Personal history of other infectious and parasitic diseases; Z88.6 Allergy status to analgesic agent; Z87.891 Personal history of nicotine dependence; Z95.1 Presence of aortocoronary bypass graft; I25.2 Old myocardial infarction; Z79.899 Other long term (current) drug therapy
CPT/HCPCS: 10078

== ENCOUNTER 2020-10-20 10:02 | Emergency (ER) | payer OTHER ==
[~2020-10-20] VITALS: Ht 167.6 cm; Wt 54.4 kg
[~2020-10-20 10:02] MED LIST changes: +AMOX TR-K CLV1 EAC4 PO; +METOPROLOL SUCC25 M1 PO; +PROBIOTIC1 EAC1 PO; +TRADJENTA5 MG PO; +TRAZODONE HCL50 MG PO; +VISTARIL 25 MG25 M1 PO
[2020-10-20 10:53] LABS: ABSOLUTE NEUTROPHILS 7.3 thou/uL (1.4-8.2); BASOPHILS 0.5 % (0.0-2.0); EOSINOPHILS 2.4 % (0.0-3.0); HEMATOCRIT 30.6 % (42.0-52.0); HEMOGLOBIN 10.2 gm/dL (14.0-18.0); LYMPHOCYTES 10.8 % (24.0-44.0); MCH 30.2 pg (26.0-34.0); MCHC 33.4 g/dL (28.0-37.0); MCV 90.5 fL (80.0-100.0); MONOCYTES 6.7 % (1.0-8.0); PLATELET COUNT 364 thou/uL (150-400); POLYS 79.6 % (36.0-66.0); RBC 3.38 mil/uL (4.50-6.00); WBC 9.1 thou/uL (4.0-11.0)
[2020-10-20 11:01] LABS: CALCIUM 8.9 mg/dL (8.5-10.1); CREATININE 1.5 mg/dL (0.7-1.3); POTASSIUM 4.2 mmol/L (3.5-5.1)
[2020-10-20 11:04] VITALS: BP 166/104
[2020-10-20 11:08] LABS: ALBUMIN 2.7 g/dL (3.4-5.0); TOTAL BILIRUBIN 0.3 mg/dL (0.2-1.0); TOTAL PROTEIN 6.3 g/dL (6.4-8.2)
--- NOTE | 2020-10-21 11:07 | EKG ---
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1955 Requested By: Niki Cardoso Order Number: [id number] MD: Tanner Arce Measurements Intervals Morris Rate: 101 P: 53 CT: 196 QRS: -2 QRSD: 90 T: 242 QT: 351 QTc: 455 Interpretive Statements Sinus tachycardia Atrial premature complex Probable anterior infarct, age indeterminate Compared to ECG 10/11/2020 08:11:49 Atrial premature complex(es) now present Myocardial infarct finding now present Atrial fibrillation no longer present T-wave abnormality no longer present Prolonged QT interval no longer present Electronically Signed On 10-21-2020 11:07:42 CDT by Tanner Arce [email or web address] <ELECTRONICALLY SIGNED> By: Tanner Arce MD, [facility] 10/21/20 1107 1010 1010 Tanner Arce MD, [facility] /EPI
== END 2020-10-20 11:04 | disposition left against medical advice (07) ==
LOC: ER 10:02
PROVIDERS: Emergency Medicine
DX: M79.662 Pain in left lower leg (principal); M79.661 Pain in right lower leg; M79.89 Other specified soft tissue disorders; I12.9 Hypertensive chronic kidney disease with stage 1 through stage 4 chronic kidney disease, or unspecified chronic kidney disease; E11.22 Type 2 diabetes mellitus with diabetic chronic kidney disease; N18.9 Chronic kidney disease, unspecified; I21.4 Non-ST elevation (NSTEMI) myocardial infarction; I48.91 Unspecified atrial fibrillation; I42.9 Cardiomyopathy, unspecified; Z95.1 Presence of aortocoronary bypass graft; Z79.82 Long term (current) use of aspirin; Z79.899 Other long term (current) drug therapy; Z88.5 Allergy status to narcotic agent; Z87.891 Personal history of nicotine dependence

== ENCOUNTER 2021-01-17 11:20 | Inpatient (IN) | payer OTHER ==
[~2021-01-17] VITALS: Ht 165.1 cm; Wt 68.9 kg
--- NOTE | ~2021-01-17 | EMS ---
[address] [address] EMS Patient Care Report Name: LUDWIG PAN Room #: 454-P DIS IN M.R.#: [id number] Admission: 01/17/21 Attend Phys: Ted Hoskins Discharge: 01/21/21 Date of : 55 Report #: [id number] THIS REPORT FOR: //name// Report Transmitted: 01/24/2021 10:15 EMS Care Summary [place], [place]/[facility] Incident [id number] @ 01/17/2021 10:47 Incident Location [address] [place] [id number] Patient LUDWIG PAN Male, 65 Years 1955 Patient Address [address] [place] [id number] Patient History Diabetes,Hypertension (HTN),Cardiac Condition - Other,Atrial Fibrillation, Patient Allergies No known allergies, Patient Medications Metoprolol, Lasix, Atorvastatin, Other, Insulin, Chief Complaint WEAKNESS Disposition Transported No Lights/[place] Dispatch Reason Chest Pain (Non-Traumatic) Transported To [facility] Narrative ARRIVED TO FIND PT WALKING TO AMBULANCE. PT STEPS INSIDE, SITS ON COT, SECURED WITH STRAPS X2. PT REPORTS FEELING WEAKNESS FOR THE PAST FEW DAYS, ESPECIALLY THIS MORNING. DENIES SHORTNESS OF BREATH AND CHEST PAIN. ALS ASSESSMENT VITALS OBTAINED. [address] [address] EMS Patient Care Report Name: LUDWIG PAN [facility]: 454[facility] [id number] Admission: 01/17/21 Attend Phys: Ted Hoskins Discharge: 01/21/21 Date of : 55 Report #: [id number] E[place]OU[place], PT CONDITION UNCHANGED. ARRIVED. PT TAKEN INSIDE ON COT TO ER 3. PT STEPS TO BED RAILS RAISED X2. REPORT GIVEN TO NURSE, PT CARE TRANSFERRED. Initial Vitals @11:02P: 87,R: 16,CO: 0,SpO2: 76, @11:02P: 113,R: 16,BP: 153/96,Pain: 0/10,GCS: 15,Glucose: 420,SpO2: 95,Revised Trauma: 12, @11:14P: 91,R: 16,BP: 142/105,Pain: 0/10,GCS: 15,SpO2: 95,Revised Trauma: 12, Assessments @10:59MENTAL:Place Oriented,Person Oriented,Event Oriented,Time Oriented,SKIN:HEENT:Head/Face: No Abnormalities,Neck/Airway: No Abnormalities,LUNG SOUNDS:Left Upper: Other,General: No Abnormalities,ABDOMEN:Left Upper: Other,General: No Abnormalities,PELVIS//GI:No Abnormalities,EXTREMITIES:Left Arm: No Abnormalities,Right Arm: No Abnormalities,Left Leg: No Abnormalities,Right Leg: No Abnormalities,PULSE:Radial: 2+ Normal,NEURO:No Abnormalities, Impression Generalized Weakness Procedures @10:59 ALS Assessment Response: UnchangedSucceeded Timeline 10:44,Call Received 10:44,Dispatch Notified 10:47,Dispatched 10:48,En Route 10:58,On Scene 10:59,At Patient 10:59,ALS Assessment,Response: UnchangedSucceeded, 11:01,Depart Scene 11:02,BP: / M,PULSE: 87,RR: 16 R,SPO2: 76 Ox,ETCO2: ,BG: ,PAIN: ,GCS: , 11:02,BP: 153/96 M,PULSE: 113,RR: 16 R,SPO2: 95 Ox,ETCO2: ,B,PAIN: 0,GCS: 15, 11:14,BP: 142/105 M,PULSE: 91,RR: 16 R,SPO2: 95 Ox,ETCO2: ,BG: ,PAIN: 0,GCS: 15, 11:16,At Destination 11:30,Call Closed Disclaimer [facility] [address] [place] [address] EMS Patient Care Report Name: LUDWIG PAN Room #: 454-P DIS IN M.R.#: [id number] Admission: 01/17/21 Attend Phys: Ted Hoskins Discharge: 01/21/21 Date of : 55 Report #: [id number] v1.1 Copyright 2020 [employer] This EMS Care Summary contains data elements from the applicable legal record (which may be displayed differently). It is designed to provide pertinent information for the following purposes: continuity of care, clinical quality, and state data reporting. The complete legal record is available to ED staff and administrators of the receiving hospital in [facility]'s Patient Tracker. All data is provided "as is."
[2021-01-17 11:25] VITALS: BP 160/117
[2021-01-17 11:39] LABS: HEMOGLOBIN 11.7 gm/dL (14.0-18.0); MCH 28.6 pg (26.0-34.0); MCHC 33.3 g/dL (28.0-37.0); MCV 85.7 fL (80.0-100.0); RBC 4.09 mil/uL (4.50-6.00); RDW 17.5 % (10.5-14.5); WBC 4.9 thou/uL (4.0-11.0)
[2021-01-17 11:49] LABS: CALCIUM 8.8 mg/dL (8.5-10.1); CREATININE 1.5 mg/dL (0.7-1.3); POTASSIUM 4.5 mmol/L (3.5-5.1)
[2021-01-17 11:59] LABS: ALBUMIN 2.7 g/dL (3.4-5.0); TOTAL BILIRUBIN 0.3 mg/dL (0.2-1.0); TOTAL PROTEIN 6.3 g/dL (6.4-8.2)
--- NOTE | 2021-01-17 14:04 | EKG ---
[place] [address] [facility] [place] [employer] [address] ELECTROCARDIOGRAM REPORT Name: LUDWIG PAN Room #: REG ABIGAIL Carter#: [id number] Admission: 01/17/21 Attend Phys: Discharge: Date of : 55 Report #: [id number] 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1955 Requested By: Cecilia Bernal Order Number: [id number] MD: Tanner Arce Measurements Intervals [place] Rate: 76 P: WI: QRS: 26 QRSD: 91 T: 23 QT: 347 QTc: 391 Interpretive Statements Atrial fibrillation Anterior infarct, old Compared to ECG 10/20/2020 10:10:16 Sinus tachycardia no longer present Atrial premature complex(es) no longer present Myocardial infarct finding still present Electronically Signed On 01-17-2021 14:03:49 CDT by Tanner Arce [email or web address] <ELECTRONICALLY SIGNED> By: Tanner Arce MD, [facility] 01/17/21 1403 1126 25 Tanner Arce MD, FACC /EPI
[2021-01-17 14:38] LABS: URINE BILIRUBIN NEGATIVE (Negative); URINE BLOOD 1+ (Negative); URINE CLARITY CLEAR; URINE COLOR YELLOW; URINE GLUCOSE-RANDOM* 3+ (Negative); URINE KETONES NEGATIVE (Negative); URINE LEUKOCYTES-REFLEX NEGATIVE (Negative); URINE NITRITE-REFLEX NEGATIVE (Negative); URINE PROTEIN (DIPSTICK) 3+ (Negative); URINE SPECIFIC GRAVITY 1.025 (1.005-1.035); URINE UROBILINOGEN 0.2 E.U./dl (0.2-1.0)
[2021-01-17 14:54] LABS: CASTS None Seen /LPF (None Seen); SQUAMOUS 0-3 Few /LPF (0-3); URINE RBC 1-2 Rare /HPF (NONE SEEN); URINE WBC-REFLEX 0-5 Rare /HPF (0-5)
[2021-01-17 14:55] LABS: BACTERIA-REFLEX None Seen /HPF (None Seen); CRYSTALS None Seen /LPF (None Seen)
--- NOTE | 2021-01-17 17:16 | NUR ---
PER LAB, COVID SWAB WAS RUN UNDER WRONG PATIENT ID AND LAB WAS UNAWARE OF THIS PROBLEM UNTIL ED CALLED ASKING WHY SWAB WAS RECEIVED BUT NOT RESULTED 5.5 HOURS AFTER COLLECTION TIME.
[2021-01-17 18:14] VITALS: BP 149/85
[2021-01-17 19:00] VITALS: BP 175/89
[2021-01-17 23:54] VITALS: BP 146/45
--- NOTE | 2021-01-18 04:26 | NUR ---
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
[2021-01-18 04:47] LABS: CALCIUM 8.7 mg/dL (8.5-10.1); CREATININE 1.8 mg/dL (0.7-1.3); POTASSIUM 3.9 mmol/L (3.5-5.1)
[2021-01-18 04:48] VITALS: BP 127/61
[2021-01-18 04:57] LABS: ALBUMIN 2.5 g/dL (3.4-5.0); MAGNESIUM 1.8 mg/dL (1.8-2.4); PHOSPHORUS 3.8 mg/dL (2.5-4.9)
[2021-01-18 07:00] VITALS: BP 132/89
--- NOTE | 2021-01-18 11:22 | EKG ---
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 : 1955 Requested By: Cecilia Bernal Order Number: [id number] MD: Vidal Bangura Measurements Intervals [place] Rate: 87 P: [place]: QRS: 0 QRSD: 94 T: 68 QT: 363 QTc: 437 Interpretive Statements Atrial fibrillation Poor R wave progression Baseline wander in lead(s) V1 Compared to ECG 01/17/2021 11:26:42 No significant changes Electronically Signed On 01-18-2021 11:22:44 CDT by Vidal Bangura [email or web address] <ELECTRONICALLY SIGNED> By: Vidal Bangura MD, [facility] 01/18/21 1122 1521 152 Vidal Bangura MD, [facility] /EPI
[2021-01-18 12:00] VITALS: BP 141/77
[2021-01-18 16:00] VITALS: BP 123/64
--- NOTE | 2021-01-18 18:51 | NUR ---
Pt A & O x4. Pt transferred from ICU to room. Pt is A-fib on tele. Pt is independent with ADLs and cares and is up ad stacy. Pt is room air. Pt is able to make needs known
[2021-01-18 20:26] VITALS: BP 118/54
[2021-01-19] VITALS (8 sets, daily range): BP systolic 138–173; BP diastolic 71–99
--- NOTE | 2021-01-19 05:04 | NUR ---
ASSUMED CARE AT 1900, PT SLEPT THROUGH THE NIGHT, COMLIANT OF TX, NO ADVERSE REACTION NOTED, TOILETED NEEDED SBA, PT REPORTS NO PAIN OR DISCOMFORT WILL CONTINUE TO MONITOR.
[2021-01-19 05:51] LABS: HEMATOCRIT 31.4 % (42.0-52.0); HEMOGLOBIN 10.2 gm/dL (14.0-18.0); MCH 28.1 pg (26.0-34.0); MCHC 32.6 g/dL (28.0-37.0); MCV 86.2 fL (80.0-100.0); RBC 3.65 mil/uL (4.50-6.00); RDW 17.6 % (10.5-14.5); WBC 5.4 thou/uL (4.0-11.0)
[2021-01-19 06:10] LABS: CALCIUM 8.3 mg/dL (8.5-10.1); CREATININE 1.6 mg/dL (0.7-1.3); POTASSIUM 4.4 mmol/L (3.5-5.1)
--- NOTE | 2021-01-19 17:11 | NUR ---
Patient is A/Ox4 able to make needs known. vss afebrile. BS have been up and down today. diet order changed to a carb control diet due to DM/elevated blood sugars. New IV in right wrist area that is patent and working well today. no s/s of infection or inflitrate. Patient had a doppler of right arm to rule out dvt. Patient is wanting to talk with CM for rehab/ltc placement.
--- NOTE | 2021-01-20 03:19 | NUR ---
ASSUMED PT CARE THIS PM. PT IS ALERT AND ORIENTED X4. PT C/O NAUSEA WHICH WAS MANAGED BY PRN MEDS. NO OTHER CONCERNS WAS VERBALIZED BY PT. PT IS UP AD JUNIOR. MEDS WERE GIVE PER EMAR ORDERS. PT IS ON RA. FALL PRECAUTIONS IN PLACE. WILL CONTINUE TO MONITOR.
[2021-01-20 04:40] VITALS: BP 144/73
[2021-01-20 06:11] LABS: CALCIUM 8.6 mg/dL (8.5-10.1); CREATININE 1.4 mg/dL (0.7-1.3); POTASSIUM 4.1 mmol/L (3.5-5.1)
[2021-01-20 08:15] VITALS: BP 133/87
--- NOTE | 2021-01-20 13:34 | NUR ---
PT ADMITTED REALTED TO RESPITATORY FAILURE. CM REVIEWED CHART AND SPOKE WITH CARE TEAM. CM MET WITH PT AT BEDSIDE THIS DAY. PT APPEARED TO BE A&O X4. CM ROLE INTRODUCED. 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 PT INDICATED HE WANTED TO GOT TO [facility] SKILLED UPON DC THEN TRANSITION TO LTC. PT HAD GONE THERE FROM HERE 10/10/20 HAD READMITTED AND THEN GONE TO HIS DTRS HOUSE 10/15/20. PT INDICATED HE HAD SPOKEN TO SOMEONE AT [facility] THIS AM. CM SPOKE WITH [facility] IN ADMISSIONS AND THEY ARE AWARE OF PT. CM TO FAX REFERRRAL ONCE PT AND OT EVAL. CM FOLLOWING REGARDING POSSIBLE DC TO [facility] SKILLED WITH TRANSITION TO LTC [place].
--- NOTE | 2021-01-20 15:13 | NUR ---
ASSUMED PT CARE THIS AM. PT A&OX4, ABLE TO MAKE NEEDS KNOWN. PATIENT REPORTS NO PAIN, NUMBNESS, OR TINGLING. PATIENT REMAINS CONTINENT AND AMBULATES INDEPENDENTLY. IV REMAINS PATENT, SALINE LOCKED. MEDICATIONS TAKEN THIS AM. CALL LIGHT WITHIN REACH.
[2021-01-20 19:53] VITALS: BP 184/95
--- NOTE | 2021-01-21 05:43 | NUR ---
Assumed pt care at 1900. A/OX4,fussy. C/o abd pain and requested for Pepcid,med order obtained from Sylvia Thomas and administered with no further complaints voiced. Up ad stacy in room w/o problems noted. Declined HS hyperglycemia regimen indicating he's afraid of dropping at NOC. On po Cardizem,no distress noted. Resting quietly at this time,will continue to monitor pt.
[2021-01-21 05:48] VITALS: BP 160/90
[2021-01-21 08:25] VITALS: BP 198/88
[2021-01-21 10:53] VITALS: BP 153/70
[2021-01-21 11:00] VITALS: BP 155/88
[2021-01-21] MEDS ORDERED: GLYBURIDE 5 MG T5 M1 PO (11:10)
[2021-01-21] MEDS ORDERED: XARELTO20 MG PO (11:15)
[2021-01-21 12:31] VITALS: BP 155/88
--- NOTE | 2021-01-21 12:37 | NUR ---
ASSUMED PT CARE THIS AM. PT A&OX4, ABLE TO MAKE NEEDS KNOWN. PATIENT MAKES NEEDS KNOWN. PATIENT REMAINS CONTINENT, AND IS UP INDEPENDENTLY IN ROOM. IV PATENT, SALINE LOCKED. PATIENT HAS NO COMPLAINTS OF PAIN. PATIENT REFUSED LUNCH TIME INSULIN. CALL LIGHT WITHIN REACH.
--- NOTE | 2021-01-21 13:31 | NUR ---
PT ACCEPTED TO IGNITE THIS DAY. CARE TEAM INDICATED THAT PT IS MEDICALLY STABLE TO DC. CM FAXED ORDERS. CHART COPY MADE. NURSE CALLED REPORT. [facility] TRANSPORT ARRANGED FOR 1330. PT IS AWARE AND AGREEABLE. NO OTHER CM INTERVENTION INDICATED. CASE CLOSED.
== END 2021-01-21 14:02 | DRG 682 ==
LOC: ER 11:20 → 2N 16:21 → EROBS 16:21 → 4W 16:21 → 2N 18:27 → 4W 01-18 18:32
PROVIDERS: Internal Medicine; Nurse Practitioner Family; ADMIT Hospitalist; ATTEND Hospitalist
DX: N17.9 Acute kidney failure, unspecified (principal); J96.90 Respiratory failure, unspecified, unspecified whether with hypoxia or hypercapnia; I82.611 Acute embolism and thrombosis of superficial veins of right upper extremity; I48.91 Unspecified atrial fibrillation; Z20.822 Contact with and (suspected) exposure to COVID-19; I25.10 Atherosclerotic heart disease of native coronary artery without angina pectoris; N18.9 Chronic kidney disease, unspecified; E78.5 Hyperlipidemia, unspecified; I25.5 Ischemic cardiomyopathy; E11.65 Type 2 diabetes mellitus with hyperglycemia; E11.22 Type 2 diabetes mellitus with diabetic chronic kidney disease; I12.9 Hypertensive chronic kidney disease with stage 1 through stage 4 chronic kidney disease, or unspecified chronic kidney disease; Z88.6 Allergy status to analgesic agent; Z87.891 Personal history of nicotine dependence; Z59.00 Homelessness unspecified; Z95.1 Presence of aortocoronary bypass graft; Z86.19 Personal history of other infectious and parasitic diseases; Z79.4 Long term (current) use of insulin; Z91.19 Patient's noncompliance with other medical treatment and regimen; Z79.82 Long term (current) use of aspirin; Z79.899 Other long term (current) drug therapy
CPT/HCPCS: 10045; 10047; 10081